=== PATIENT | female | born 1945 | race Caucasian/White ===

== ENCOUNTER 2024-04-20 13:12 | Emergency (ER) | payer MEDICARE, OTHER, SELFPAY ==
--- NOTE | ~2024-04-20 | CT_ITS ---
EXAMINATION: CT abdomen pelvis w con DATE: 04/20/2024 14:41 INDICATION: left lower abd pain TECHNIQUE: Computed tomography (CT) of the abdomen and pelvis was performed with 100 mL Omnipaque-350 intravenous contrast. Automated exposure control and iterative reconstruction technique were employe d. The dose-length product was 396.91 mGy-cm. COMPARISON: None. FINDINGS: Lower thorax: Ovoid circumscribed 11 mm nodule in the right posterior costophrenic sulcus. Lung bases otherwise clear. Aortic valve and coronary artery calcification. Liver: Normal. Biliary/Gallbladder: Gallbladder is normal. Mild intrahepatic bile duct dilation. The common bile gian t measures 14 mm at the ry hepatis, without detection of an obstructing intraductal mass or stone. Small and uncomplicated appearing duodenal diverticulum near the ampulla. Pancreas: No mass or duct dilation. Spleen: Normal. Adrenals:No mass. Kidneys: Multiple simple bilateral renal cysts. No hydronephrosis. 1 cm indeterminate density left mi dpole exophytic lesion. GI tract: Small hiatal hernia. Mild distal esophageal and gastric wall edema. No small or large bowel dilation. Appendix not visualized. Sigmoid prominent diverticulosis without diverticulitis. Mesentery/Peritoneum: No ascites, mass, or free air. Retroperitoneum: No mass. Atherosclerotic calcifications of intra-abdominal arterial vessels. Pelvis: Pelvic organs are within normal limits. Tubal ligation clips. Soft Tissues: Soft tissues and body wall unremarkable. Bones: No acute osseous finding. IMPRESSION: 11 mm right lower lobe pulmonary nodule. Consider CT at 3 months, PET/CT, or tissue sampling. Mild esophagitis/gastritis. Intra and extrahepatic bile duct dilation, without definite obstructing stone, possibly related to an adjacent, otherwise uncomplicated appearing small duodenal diverticulum. Correlate with biliary labs . 1 cm indeterminate left midpole exophytic lesion. Consider nonemergent, outpatient CT or MR of the [facility] for further characterization. Reviewed, dictated and finalized at location K. IMPRESSION: 11 mm right lower lobe pulmonary nodule. Consider CT at 3 months, PET/CT, or ti ssue sampling. Mild esophagitis/gastritis. Intra and extrahepatic bile duct dilation, without definite obstructing stone, possibly related to an adjacent, otherwise uncomplicated appearing small duoden al diverticulum. Correlate with biliary labs. 1 cm indeterminate left midpole exophytic lesion. Consider nonemergent, outpati ent CT or MR of the kidneys for further characterization.
--- NOTE | ~2024-04-20 | US_ITS ---
EXAMINATION: US abdomen limited DATE: 04/20/2024 15:42 INDICATION: cbd dilated TECHNIQUE: Multiple grayscale and Doppler ultrasound images of limited portions of the abdomen were o btained. COMPARISON: CT abdomen pelvis 04/20/2024. FINDINGS: The visualized portions of the pancreas are normal. The liver is normal with normal echogen icity and echotexture. No surface nodularity. Normal hepatopetal flow in the main portal vein. The ga llbladder is normal with no abnormal wall thickening, pericholecystic fluid or stones, small amount o f gallbladder sludge. The common bile duct measures 12 mm. There was no sonographic [place] sign. IMPRESSION: Intra and extrahepatic bile duct dilation, no obstructing stone detected. Biliary sludge. Otherwise n ormal limited abdominal ultrasound findings. Reviewed, dictated and finalized at location K. IMPRESSION: Intra and extrahepatic bile duct dilation, no obstructing stone detected. Bilia ry sludge. Otherwise normal limited abdominal ultrasound findings.
--- OUTSIDE RECORDS SUMMARY | 2024-04-20 13:14 | XMS_ITS | Clinical Summary ---
Author Organization [facility] Facility Address [address] [place] [address] Care Team Providers Care Lead C Developer Name Role Phone Yee Gannon APN Primary Care Provide r Allergies No known active allergies Medications albuterol HFA (PROVENTIL HFA;VENTOLIN HFA) 108 (90 Base) MCG/ACT inhaler albuterol sulfate HFA 90 mcg/actuation aerosol inhaler INHALE 2 PUFFS INTO THE LUNGS BY MOUTH EVERY 4 HOURS NEEDED 9 Active aspirin ([place]) 81 MG EC tablet Take 81 mg by mouth in the morning. Active atorvastatin (LIPITOR) 40 MG tablet Take 40 mg by mouth in the morning. 9 Active buPROPion XL (WELLBUTRIN XL) 150 MG 24 hr tablet Take 150 mg by mouth in the morning. 3 Active Cholecalciferol 50 MCG (2000 UT) capsule Take 2,000 Units by mouth Active citalopram (CeleXA) 10 MG tablet Take 10 mg by mouth in the morning. 4 Active fluticasone (FLONASE) 50 MCG/ACT nasal spray Administer 1 spray into affected nostril(s) in the morning. 3 Active levothyroxine (SYNTHROID, LEVOTHROID) 112 MCG tablet Take 112 mcg by mouth in the morning. 9 Active lisinopril 20 MG tablet Take 20 mg by mouth in the morning. Active loratadine (CLARITIN) 10 MG tablet Take 10 mg by mouth in the morning. 3 Active montelukast (SINGULAIR) 10 MG tablet Take 10 mg by mouth 1 (one) time each day in the evening 3 Active omeprazole (PriLOSEC) [address] capsule Take 40 mg by mouth in the morning. 9 Active pramipexole (MIRAPEX) 1.5 MG tablet Take 1.5 mg by mouth in the morning. 9 Active traZODone (DESYREL) 150 MG tablet Take 150 mg by mouth in the morning. 3 Active Active Problems Problem Noted Date Diagnosed Date Chronic kidney disease stage 3 07/20/2023 Obstructive sleep apnea syndrome 07/21/2021 Gastroesophageal reflux disease 12/03/2017 Chronic obstructive pulmonary disease 08/21/2017 Overview (07/17/2023): Note: PFT 2013- mild COPD without response to bronchodilator Note: PFT 2013-mild COPD without response to bronchodilator Note: PFT 2013- mild COPD without response to bronchodilator Note: PFT 2013-mild COPD without response to bronchodilator Cyst of kidney 10/09/2016 Overview (07/17/2023): Date Onset: 10/09/2016 Essential hypertension 07/24/2016 Hyperlipidemia 07/24/2016 Hypothyroidism 07/24/2016 Type 2 diabetes mellitus without complication Overview (07/17/2023): Date Onset: 06/20/2016 Immunizations Name Administration Dates Next Due Influenza Vaccine, Quadrival ent, Adjuvanted 11/20/2022 Influenza, Quadrivalent, Pre servative Free 11/05/2013 Influenza, Quadrivalent, Wit h Preservative 10/13/2012 Influenza, Unspecified 11/24/2021,2020,12/03/2017,12/09,12/09/2016,12/14/2015,10/25/2012 Pneumococcal Polysaccharide 12/03/2017,1 02/25/2016,12/14/2015,02/03 Pneumococcal, Unspecified 05/28/2023 Shingrix 04/09/2023 Zoster 12/14/2015 Family History Medical History Relation Comments Diabetes Brother Hypertension Brother Gout Father Hypertension Father Dementia Mother Diabetes Mother Hypertension Mother Cancer Mother's Brother Relation Status Comments Brother Father Mother Mother's Brother Social History Tobacco Use Types Packs/Day Years Used Date Smoking Tobacco: Never Smokeless Tobacco: Never Tobacco Cessation:Counseling Given: Not Answered Alcohol Use Standard Drinks/Week Comments Not Currently 0 (1 standard drink = 0.6 oz pur e alcohol) Comments Unknown Sex and Gender Information Value Date Recorded Sex Assigned at Not on file Legal Sex Female 1:30 PM EDT Gender Identity Not on file Sexual Orientation Not on file Last Filed Vital Signs Vital Sign Reading Time Taken Comments Blood Pressure 152/70 11/19/2023 2:33 PM CDT Pulse 71 11/19/2023 2:33 PM CDT Temperature 36.7 C (98.1 F) 11/19/2023 2:33 PM CDT Respiratory Rate 17 11/19/2023 2:33 PM CDT Oxygen Saturation 92% 11/19/2023 2:33 PM CDT Inhaled Oxygen Concentration - - Weight 64.9 kg (143 lb) 11/19/2023 2:33 PM CDT Height 147.3 cm (4' 10) 11/19/2023 2:33 PM CDT Body Mass Index 29.89 11/19/2023 2:33 PM CDT Plan of Treatment Health Maintenance Due Date Last Done Comments Diabetes: Pedal Pulse Checked 06/26/2023 Diabetes: Sensory Foot Exam 06/26/2023 Diabetes: Visual Foot Exam 06/26/2023 Pneumococcal Vaccine: 65+ Years (3 of 3 - PCV) 05/27/2024 05/28/2023, 12/03/2017, 12/25/2016, Additional history exists Diabetes: Hemoglobin A1C 06/22/2024 025, 10/08/2023, 03/15/2023, Additional history exists Diabetes: Ophthalmology Exam 01/03/2025 01/04/2024 Influenza Vaccine Completed 10/18/2023, , 11/24/2021, Additional history exists Hepatitis B Vaccine Aged Out No longe r eligible based on patient's age to complete this topic Procedures Procedure Name Priority Date/Time Associated Diagnosis Comments EXT RESULT ENTRY Routine 03/15/2023 from Last 3 Months or Most Recently Relevant to Health Maintenance Results * (ABNORMAL) EXT RESULT ENTRY (03/15/2023) WBC 5.98 3.3 - 10.0 10*3/ML Red Blood Cell Count 4.21 Hemoglobin 12.3 12.0 - 16.0 Hematocrit 40.2 36.0 - 46.0 Platelets 280 150 - 399 10*3/UL MCV 95.5 82.0 - 108.0 Sodium 143 137 - 147 Potassium 4.8 3.4 - 5.5 Chloride 106.0 99.0 - 108.0 Carbon Dioxide 29 mmol/L Anion Gap 13 <=30 MMOL/L Glucose 97 60 - 200 BUN 24(A) 4 - 21 mg/dL Creatinine 1.26(A) 0.50 - 1.10 mg/dL Total Protein 7.2 6.4 - 8.2 G/DL BUN/Creatinine Ratio 19 Albumin 3.9 3.5 - 5.0 g/dL Calcium 9.6 8.7 - 10.7 mg/dL eGFR Non-Afr Swazi 41 (TSH) Thyroid Stimulating Hormone 0.94 Hemoglobin A1C 5.4 4.0 - 6.0 Triglycerides 82 Cholesterol, Total 169 HDL 54 mg/dL LDL-Calculated 99 Chol/HDL Ratio (External Entry) 3.1 Non HDL Cholesterol 115 03/15/2023 Historical Provider LAB BLOOD ORDERABLES Ariella l Result from Last 3 Months or Most Recently Relevant to Health Maintenance Insurance [facility] MEDICARE Advance Directives Documents on File Type Date Recorded Patient Grommet Man Expl anation Advance Care Planning 09/10/2023 3:37 PM Care Teams Lead C Developer Relationship Specialty Start Date End Date Yee Gannon APN [phone] [place] [address] PCP - General Nurse Practitioner 06/22/23
--- OUTSIDE RECORDS SUMMARY | 2024-04-20 13:14 | XMS_ITS | Encounter Summary ---
Author Organization [facility] Address [address] [place] [address] Care Team Providers Care International Trade Analyst Name Role Phone Angelica Jacinto SHOE TREER Primary Care Provider Unav ailable Jayleen Swan MD Primary Care Provider + Conchis Parsons MD Unavailable [phone] Kevin Fonseca MD Unavailable Encounter Details Date Type Department Care Team (Late st Contact Info) Description 08/04/2020 Hospital Follow-up Call [facility] [address] [place], [place] [phone] Helen Fuentes, RN Social History Tobacco Use Types Packs/Day Years Used Date Smoking Tobacco: Never Smokeless Tobacco: Never 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 Alcohol Use Standard Drinks/Week Comments No 0 (1 standard drink = 0.6 oz pur e alcohol) AUDIT-C Answer Date Recorded Frequency of Alcohol Consumption Never 12/24/2017 Average Number of Drinks Not on file Frequency of Binge Drinking Not on file 12/13 PHQ-2 Answer Date Recorded PHQ-2 Score - If the patient scores above 3, please move on to questions 3-9 2 08/02/2020 Comments No Sex and Gender Information Value Date Recorded Sex Assigned at Not on file Legal Sex Female 7:58 AM CDT Gender Identity Female 03/07/2021 3:32 PM SOFA BACK UPHOLSTERER Sexual Orientation Straight 03/07/2021 3: 32 PM SOFA BACK UPHOLSTERER COVID-19 Exposure Response Date Recorded In the last month, have you been in contact with someone who was confirmed or suspected to have Coronavirus / COVID-19? No / Unsure 08/04/2020 1:20 PM CDT documented as of this encounter Functional Status * RETIRED Are you deaf or do you have serious difficulty hearing Answer Date of Assessment Author Status No 07/31/2020 3:30 AM CDT Activ e * RETIRED Are you blind or do you have serious difficulty seeing, even when wearing glasses? Answer Date of Assessment Author Status No 07/31/2020 3:30 AM CDT Activ e * Do you have serious difficulty walking or climbing stairs? Answer Date of Assessment Author Status No 07/31/2020 3:30 AM CDT Trent Thurman RN Active * Do you have difficulty dressing or bathing? Answer Date of Assessment Author Status No 07/31/2020 3:30 AM CDT Trent Thurman RN Active * Because of a physical, mental, or emotional condition, do you have difficulty doing errands alone such as visiting a doctor's office or shopping? Answer Date of Assessment Author Status No 07/31/2020 3:30 AM CDT Trent Thurman RN Active documented as of this encounter Mental Status * Because of a physical, mental, or emotional condition, do you have serious difficulty concentrating, remembering, or making decisions? Answer Entry Date Author Status No 07/31/2020 3:30 AM CDT Trent Thurman RN Active documented in this encounter Plan of Treatment Upcoming Encounters Date Type Department Care Team (Late st Contact Info) Description 04/23/2024 10:40 AM CDT Office Visit [facility] Medical [facility] Multispecialty Care - [facility] [address] [facility], [address] [place] [address] Jayleen Swan MD [address] [place] [id number] Roque Guy PA-C [address] [facility] [address] [place] [address] 09/29/2024 9:50 AM CDT Allied Health/Nurse Visit [address] [place] [address] Jayleen Swan MD [address] [facility] [address] [place] [address] [id number] 10/06/2024 8:50 AM CDT Office Visit [address] [address] Jayleen Swan MD [address] [place] [address] 04/07/2025 10:30 AM SOFA BACK UPHOLSTERER Office Visit [address] [address] Jayleen Swan MD [address] [facility] [address] [place] [address] [phone] documented as of this encounter Visit Diagnoses Not on filedocumented in this encounter Additional Health Concerns Infection Onset Date Last Indicated Resolved Time COVID-19 Rule Out 08/10/2020 08/10/2020 01/03/2021 7:05 PM SOFA BACK UPHOLSTERER COVID-19 Rule Out 03/28/2021 03/28/2021 03/28/2021 9:19 AM SOFA BACK UPHOLSTERER COVID-19 Rule Out 03/28/2021 03/28/2021 03/28/2021 8:36 PM SOFA BACK UPHOLSTERER Assessment Noted Time PHQ-9 Depression Total Score: 2 08/03/19 21 4:02 PM CDT documented as of this encounter Care Teams International Trade Analyst Relationship Specialty Start Date End Date Angelica Jacinto FNP PCP - General FAMILY PRACTICE 11/21/17 03/01/22 Jayleen Swan MD [address] [place] [address] PCP - General FAMILY PRACTICE 12/19/23 [place] [address] [place] [address] Consulting Physician PULMONARY DISEASE 04/01/24 5 Kevin Fonseca MD [address] [id number] Consulting Physician GASTROENTEROLOGY 04/01/24 04/01/[address] [address] 03/09/24 documented as of this encounter
--- OUTSIDE RECORDS SUMMARY | 2024-04-20 13:15 | XMS_ITS | Encounter Summary ---
Author Organization [facility] Address [address] [place] [address] Phone Care Team Providers Care Research Affiliate Name Role Phone Yee Gannon APRN, CNP Primary Care P rovider Reason for Visit * Reason Comments Medication Refill Encounter Details Date Type Department Care Team (Late st Contact Info) Description 06/12/2023 Refill [facility] - Primary Care - [place] [address] [place] [address] Yee Gannon APRN, CNP [address] [place] [address] Medication Refill Social History Tobacco Use Types Packs/Day Years Used Date Smoking Tobacco: Never Smokeless Tobacco: Never Alcohol Use Standard Drinks/Week Comments Not Currently 0 (1 standard drink = 0.6 oz pur e alcohol) [facility] Utilities Answer Date Recorded In the past 12 months has [employer] electric, gas, oil, or water company threatened to shut off services in your home? No 04/08/2023 Social Connection and Isolat ion Panel [NHANES] Answer Date Recorded In a typical week, how many times do you talk on the phone with family, friends, or neighbors? More than three times a week 04/08/2023 How often do you get togethe r with friends or relatives? Once a week 04/08/2023 How often do you attend chur ch or druze services? More than 4 times per year 04/08/2023 Do you belong to any clubs o r organizations such as zoroastrianism groups, unions, fraternal or athletic groups, or school groups? No 04/08/2023 How often do you attend meet ings of the clubs or organizations you belong to? Never 04/08/2023 Are you , , di vorced, , never , or living with a partner? 04/08/2023 AUDIT-C Answer Date Recorded Q1: How often do you have a drink containing alc ohol? Monthly or less 04/08/2023 Q2: How many drinks containi ng alcohol do you have on a typical day when you are drinking? 1 or 2 04/08/2023 Q3: How often do you have si x or more drinks on one occasion? Never 04/08/2023 Overall Financial Resource Strain (CARDIA) Answe r Date Recorded How hard is it for you to pa y for the very basics like food, housing, medical care, and heating? Not very hard 04/08/2023 [facility] - Occupational Stress Questionnaire Answer Date Recorded Do you feel stress - tense, restless, nervous, or anxious, or unable to sleep at night because your mind is troubled all the time - these days? Rather much 04/08/2023 Exercise Vital Sign Answer Date Recorde d On average, how many days pe r week do you engage in moderate to strenuous exercise (like a brisk walk)? 2 days 04/08/2023 On average, how many minutes do you engage in exercise at this level? 10 min 04/08/2023 Hunger Vital Sign Answer Date Recorded Within the past 12 months, y ou worried that your food would run out before you got the money to buy more. Never true 04/08/19 24 Within the past 12 months, t he food you bought just didn't last and you didn't have money to get more. Never true 04/08/2023 PRAPARE - Transportation Answer Date Re corded In the past 12 months, has l ack of transportation kept you from medical appointments or from getting medications? No 03/16 In the past 12 months, has l ack of transportation kept you from meetings, work, or from getting things needed for daily living? No 04/08/2023 Housing Stability Vital Sign Answer Manolo e Recorded In the last 12 months, was t here a time when you were not able to pay the mortgage or rent on time? No 04/08/2023 In the last 12 months, how many places have you lived? 2 04/08/2023 In the last 12 months, was t here a time when you did not have a steady place to sleep or slept in a care home (including now)? No 04/08/2023 Education Answer Date Recorded What is the highest level of school you have completed or the highest degree you have received? 12th grade 04/29/2022 Sexually Active Control Partners Comments Not Currently Comments No Sex and Gender Information Value Date Recorded Sex Assigned at Not on file Legal Sex Female 9:02 AM HEART NURSE Gender Identity Female 11/28/2022 6:48 PM CDT Sexual Orientation Straight 11/28/2022 6: 48 PM CDT documented as of this encounter Plan of Treatment Not on file documented as of this encounter Visit Diagnoses Diagnosis Essential hypertension Unspecified essential hypertension Hypothyroidism, unspecified type documented in this encounter Care Teams Research Affiliate Relationship Specialty Start Date End Date Yee Gannno, FOOD QUALITY TECHNICIAN, PAINTER SUPERVISOR [address] [place] [address] PCP - General Advanced Practice Nurse 04/13/2201/28 documented as of this encounter
--- OUTSIDE RECORDS SUMMARY | 2024-04-20 13:15 | XMS_ITS | Clinical Summary ---
Author Organization [facility] Address [address] [place] [id number] Care Team Providers Care Cathode Washer Name Role Phone Jayleen Swan MD Primary Care Provider + Allergies No known active allergies Medications aspirin EC (ASPIRIN EC) 81 MG tablet Take 1 tablet (81 mg total) by mouth daily. Active Cholecalciferol (VITAMIN D3) 2000 units Cap Take 1 capsule by mouth daily. Active albuterol sulfate HFA (VENTOLIN HFA) 108 (90 Base) MCG/ACT inhalerIndications :Cough,SOB (shortness of breath) Inhale 2 puffs every 4-6 hours as needed for cough and SOB 18 g 03/29/19 19 Active Blood Glucose Monitoring Suppl (D-CARE GLUCOMETER) w/Device KitIndications:Typ e 2 diabetes mellitus without complication, without long-term current use of insulin ([facility]) 1 Device by Does not apply route daily as needed. 1 kit 04/28/19 20 Active Glucose Blood (COOL BLOOD GLUCOSE TEST STRIPS) test stripIndications:T ype 2 diabetes mellitus without complication, without long-term current use of insulin ([facility]) 1 strip by Other route as needed. Use as instructed 200 strip 2 04/28/19 20 Active CPAP DEVICE [place], DME,Indications:OS A (obstructive sleep apnea) Present CPAP pressure.16. New CPAP. Pressure.14. Obstructive sleep apnea G47.33 1 Device 03/02/19 22 Active atorvastatin 40 MG tabletIndications: Mixed hyperlipidemia Take 1 tablet (40 mg total) by mouth in the morning. 90 tablet 1 07/05/19 22 Active montelukast 10 MG tabletIndications: Allergic rhinitis, unspecified seasonality, unspecified trigger Take 1 tablet (10 mg total) by mouth every evening. 90 tablet 1 07/05/19 22 Active levothyroxine 112 MCG tabletIndications: Acquired hypothyroidism Take 1 tablet (112 mcg total) by mouth in the morning. 90 tablet 1 07/05/19 22 Active Ferrous Sulfate (RA IRON) 27 MG Tab Take 27 mg by mouth daily. Active omeprazole (PRILOSEC) 20 MG capsuleIndications :Gastroesophageal reflux disease, unspecified whether esophagitis present Take 1 capsule (20 mg total) by mouth daily. 90 capsule 3 12/19/19 24 025 Active pramipexole (MIRAPEX) 1.5 MG tabletIndications: RLS (restless legs syndrome) Take 1 tablet (1.5 mg total) by mouth 2 (two) times daily. 180 tablet 1 02/25/19 25 Active budesonide-formote rol (SYMBICORT) 160-4.5 MCG/ACT inhalerIndications :COPD exacerbation (CMS/HCC HHS/HCC) Inhale 2 puffs into the lungs 2 (two) times daily. 10.2 g 1 04/01/19 25 Active valsartan (DIOVAN) 160 MG tabletIndications: Essential hypertension Take 1 tablet (160 mg total) by mouth daily. 90 tablet 3 04/01/19 25 026 Active citalopram (CELEXA) 10 MG tabletIndications: Depression, major, recurrent, in remission Take 1 tablet (10 mg total) by mouth daily. 90 tablet 3 04/01/19 25 026 Active budesonide-formote rol (SYMBICORT) 160-4.5 MCG/ACT inhalerIndications :COPD exacerbation (CMS/HCC HHS/HCC) Inhale 2 puffs into the lungs 2 (two) times daily. 10.2 g 1 04/04/19 22 025 Discontin ued(Reord er) diphenhydrAMINE-AP AP (TYLENOL PM) 25-500 MG Tab tablet Take 1 tablet by mouth nightly at bedtime. 025 Discontin ued(Thera py completed ) lisinopril (PRINIVIL) 30 MG tabletIndications: Essential hypertension Take 1 tablet (30 mg total) by mouth daily. 90 tablet 3 12/27/19 24 025 Discontin ued(Side effects) Active Problems Problem Noted Date Diagnosed Date Optic neuropathy, right 10/04/2023 Overview (12/19/2023): Goes to [place]. Needed an MRI. Has an appt scheduled later this month. Stage 3 chronic kidney disease 07/20/2023 Overview (04/01/2024): In 07/2022 GFR was 56. Down to 30s in 2023. Scheduled with Dr. Hassan later this month. Assessment & Plan (04/01/2024 3:37 PM FAMILY LAW LEGAL ASSISTANT): GFR is stable. Will wait for nephrology recommendations. Assessment & Plan (01/28/2024 12:06 PM FAMILY LAW LEGAL ASSISTANT): Referral to local nephrology entered. Encouraged her to keep her appointment as scheduled for now. Assessment & Plan (12/19/2023 11:08 AM FAMILY LAW LEGAL ASSISTANT): Chronic. Recent loss of kidney function with GFR now down to 30s beginning in 2023. She is working with nephrology. There appears to be confusion about her lisinopril dose. We are communicating with the office to determine which dose they recommended. Spinal stenosis of lumbar re gion with neurogenic claudication 05/15/2023 Overview (12/19/2023): Chronic back pain. Worse in the morning until she gets moving. Just managing without OTC. History of colon polyps 03/08/2021 Overview (03/08/2021): Added automatically from request for surgery [id number] Allergic rhinitis, unspecifi ed seasonality, unspecified trigger 01/04/2021 Overview (12/19/2023): Takes singulair. Not a lot of relief. GERD (gastroesophageal reflux disease) 8 Overview (04/01/2024): Takes omeprazole 20 mg daily. Patient notes that she is having some difficulty with swallowing but the consistency of the food does not matter. She can get significant hiccups depending what she eats. She has not had a scope. Assessment & Plan (04/01/2024 3:41 PM FAMILY LAW LEGAL ASSISTANT): Not currently controlled despite PPI. Will request GI evaluate her to determine whether she should have an EGD. Assessment & Plan (12/19/2023 11:09 AM FAMILY LAW LEGAL ASSISTANT): Chronic. Controlled. Will trial omeprazole 20 mg daily to see if we can reduce her PPI use due to long-term risks. COPD (chronic obstructive pu lmonary disease) ([facility]) 08/21/2017 Overview (12/27/2023): PFT 2013-mild COPD without response to bronchodilator. Has prescriptions for symbicort and albuterol. Cough is now improved since starting her inhaler at nighttime. Assessment & Plan (04/01/2024 3:37 PM FAMILY LAW LEGAL ASSISTANT): Currently managed with albuterol alone. She will initiate Symbicort at the onset of any illness in the future. Assessment & Plan (12/27/2023 10:30 AM FAMILY LAW LEGAL ASSISTANT): Improved control with better compliance with her albuterol inhaler. Assessment & Plan (12/19/2023 11:08 AM FAMILY LAW LEGAL ASSISTANT): Chronic. Possibly not controlled due to cough at night. Recommended she use her albuterol inhaler in the evening to see if this improves her breathing and cough. Insomnia 08/21/2017 Overview (04/01/2024): She is back on citalopram which helped manage her depression. Trazodone did not seem to be effective. Mirtazapine caused increase in appetite. She discontinued both and his limited her Tylenol PM dosing to about once a week. Melatonin has helped more with sleep this time than in the past. Assessment & Plan (04/01/2024 3:40 PM FAMILY LAW LEGAL ASSISTANT): Chronic. Reasonably controlled with melatonin. Assessment & Plan (01/28/2024 12:06 PM FAMILY LAW LEGAL ASSISTANT): Discussed limited options in the future due to side effect profiles of medications. Recommend continuing with limited Tylenol PM. Patient is willing to allow for a month of adjustment and then trial melatonin again. Assessment & Plan (12/27/2023 10:29 AM FAMILY LAW LEGAL ASSISTANT): Discontinue trazodone and Tylenol PM in favor of mirtazapine. Discontinue citalopram as well since mirtazapine should help in this regard as well. Assessment & Plan (12/19/2023 11:09 AM FAMILY LAW LEGAL ASSISTANT): Not controlled. Discussed that we may consider replacing trazodone and citalopram with mirtazapine which may help with sleep and avoid antihistamines as she has been taking. Renal cyst 10/09/2016 Overview (12/24/2017): Date Onset: 10/09/2016 Mixed hyperlipidemia 07/24/2016 Overview (12/19/2023): Patient takes atorvastatin 40 mg daily. Assessment & Plan (04/01/2024 3:39 PM FAMILY LAW LEGAL ASSISTANT): CMP and lipid panel at goal. Continue atorvastatin 40 mg daily. Assessment & Plan (01/28/2024 12:08 PM FAMILY LAW LEGAL ASSISTANT): Repeat lipid panel in May along with CMP. Continue atorvastatin. Assessment & Plan (12/19/2023 11:07 AM FAMILY LAW LEGAL ASSISTANT): Chronic and controlled. CMP and lipid panel from September reviewed. Essential hypertension 07/24/2016 Overview (01/28/2024): When she saw nephrology on 11/19/2023 she had been off her amlodipine and lisinopril due to concerns about hypotension. She is now on lisinopril 30 mg daily. Reports home readings as low as 122/70 and typically between 130 and 140 systolic. Tolerating medication well. Her new cuff seems to be working well. Assessment & Plan (04/01/2024 3:39 PM FAMILY LAW LEGAL ASSISTANT): Chronic and controlled. Unfortunately has side effects from lisinopril. Will switch to equivalent dose of valsartan 160 mg daily. Request she monitor her blood pressures at home. Assessment & Plan (01/28/2024 12:07 PM FAMILY LAW LEGAL ASSISTANT): Chronic and now controlled. Continue lisinopril 30 mg daily. She will continue to monitor her home readings. Assessment & Plan (12/27/2023 10:28 AM FAMILY LAW LEGAL ASSISTANT): Controlled. Blood pressure seems adequate range with 30 mg daily. Will continue this and she will follow-up with nephrology as previously scheduled. Assessment & Plan (12/19/2023 11:07 AM FAMILY LAW LEGAL ASSISTANT): Chronic and controlled today. Concerned about her high dose of lisinopril and suspect there was miscommunication about which dose she should be taking. We will reach out to Dr. Ansari's office to confirm which dose she should take. In the meantime I recommended that she take lisinopril 30 mg daily and we will check a BMP to ensure kidney function and potassium levels are acceptable. Acquired hypothyroidism 07/24/2016 Overview (12/19/2023): Takes levothyroxine with other medications. TSH stable normal in 09/2023. Assessment & Plan (04/01/2024 3:39 PM FAMILY LAW LEGAL ASSISTANT): TSH controlled. Continue levothyroxine. Assessment & Plan (12/19/2023 11:09 AM FAMILY LAW LEGAL ASSISTANT): TSH reviewed. Chronic and controlled. Continue levothyroxine. In the future may consider changing recommendation for how she is taking prescription but there appears to be confusion about medication and do not wish to exacerbate this. YAZAN (obstructive sleep apnea) 07/24/2016 Overview (12/19/2023): Has inspire. Type 2 diabetes mellitus wit h diabetic nephropathy, without long-term current use of insulin ([facility]) 06/20/2016 Overview (04/01/2024): Date Onset: 06/20/2016. A1c 6 %. Metformin discontinued after kidney disease. Managing with diet alone. [facility]ina lennon in [place]. Assessment & Plan (04/01/2024 3:38 PM FAMILY LAW LEGAL ASSISTANT): Chronic. Controlled without medication. Discussed dietary changes specifically increasing high-fiber foods and reducing saturated fats and simple sugars. Will request diabetic eye exam from Martina lennon. RLS (restless legs syndrome) 06/20/2016 Overview (12/19/2023): Date Onset: 06/20/2016. Takes pramipexole which works well. Assessment & Plan (12/19/2023 11:09 AM FAMILY LAW LEGAL ASSISTANT): Controlled. Continue pramipexole. Chronic. Encounters Date Type Department Care Team Description 04/02/[address] [place] [phone] Jayleen Swan MD Record Request 04/01/2024 2:00 PM FAMILY LAW LEGAL ASSISTANT Office Visit [address] [place] [address] Jayleen Swan MD Follow Up (2 mo ck on DM. ) 04/01/2024 1:00 PM FAMILY LAW LEGAL ASSISTANT Office Visit [address] [place] [address] Jayleen Swan MD Medicare Wellness (Patient presents today for her Medicare Annual Wellness Visit) 04/01/[address] [place] [address] Jayleen Swan MD Health Maintenance Follow Up (Request for DM eye exam) 04/01/2024 Travel 03/25/2024 7:40 AM FAMILY LAW LEGAL ASSISTANT Laboratory Only [address] [place] [address] Jayleen Swan MD 03/25/2024 Travel 02/26/2024 Telephone [place] [phone] [facility] [address] [place] [address] Jayleen Swan MD Refill Request 01/28/2024 9:30 AM FAMILY LAW LEGAL ASSISTANT Office Visit [place] [phone] [facility] [address] [place] [address] Jayleen Swan MD Follow Up (Here for re ck on insomnia she isn't sleeping at night. ) 01/28/2024 Travel from Last 3 Months Immunizations Name Administration Dates Next Due Arexvy Respiratory Syncytial Virus (RSV, adjuvanted) 0.5 mL, PF 02/14/2024 FLUAD (IIV, Trivalent, 0.5 M L Pre-filled Syringe) 10/18/2023 Fluad influenza vaccine, Sha drivalent (aIIV4), Inactivated, adjuvanted, preservative free, 0.5 mL,IM use 11/20/2022 Fluzone High Dose - >Age 65 (Prefilled Syringe) 01/04/2021,12/09/2016 Influenza (Generic) 11/24/2021, 8,12/09/2016,2015,10/25/2012 Influenza Adult (Generic) 12/03/2017,,11/05/2013,2012 Pneumococcal (Pneumovax 23) 12/03/2017,1 02/25/2016,12/14/2015,2013 Pneumococcal (Prevnar 20) 05/28/2023 Pneumococcal(Ppv 23)Aka Pneumovax 12/03/2017 Shingrix 07/06/2023,04/09/2023 Zoster (Zostavax) 82202 Unt/0.65Ml 12/14/2015 Family History Medical History Relation Comments Diabetes Father Hypertension Father Dementia Mother Relation Status Comments Brother Father Mother Social History Tobacco Use Types Packs/Day Years Used Date Smoking Tobacco: Never Passive Smoke Exposure: Past Smokeless Tobacco: Never Tobacco Cessation:Counseling Given: No Alcohol Use Standard Drinks/Week Comments Not Currently 0 (1 standard drink = 0.6 oz pur e alcohol) AUDIT-C Answer Date Recorded Q1: How often do you have a drink containing alcohol? Never 03/30/2024 Q2: How many drinks containi ng alcohol do you have on a typical day when you are drinking? Patient does not drink Q3: How often do you have si x or more drinks on one occasion? Never 03/30/2024 PHQ-2 Answer Date Recorded Patient Health Questionnaire-2 Score 1 03/30/2024 Comments No Sex and Gender Information Value Date Recorded Sex Assigned at Not on file Legal Sex Female 7:58 AM CDT Gender Identity Female 03/07/2021 3:32 PM FAMILY LAW LEGAL ASSISTANT Sexual Orientation Straight 03/07/2021 3: 32 PM FAMILY LAW LEGAL ASSISTANT Last Filed Vital Signs Vital Sign Reading Time Taken Comments Blood Pressure 128/68 04/01/2024 1:53 PM FAMILY LAW LEGAL ASSISTANT Pulse 72 04/01/2024 1:53 PM FAMILY LAW LEGAL ASSISTANT Temperature 36.3 C (97.4 F) 04/01/2024 1:53 PM FAMILY LAW LEGAL ASSISTANT Respiratory Rate 16 04/01/2024 1:08 PM FAMILY LAW LEGAL ASSISTANT Oxygen Saturation 96% 04/01/2024 1:53 PM FAMILY LAW LEGAL ASSISTANT Inhaled Oxygen Concentration - - Weight 67.7 kg (149 lb 4.8 oz) 04/01/2024 1:53 P M FAMILY LAW LEGAL ASSISTANT Height 147.3 cm (4' 10) 04/01/2024 1:53 PM FAMILY LAW LEGAL ASSISTANT Body Mass Index 31.2 04/01/2024 1:53 PM FAMILY LAW LEGAL ASSISTANT Plan of Treatment Upcoming Encounters Date Type Department Care Team (Late st Contact Info) Description 04/23/2024 10:40 AM CDT Office Visit [facility] - [address], [address] [place] [id number] Jayleen Swan MD [address] [place] [address] Roque Guy PA-C [address] [facility] [address] [place] [id number] 09/29/2024 9:50 AM CDT Allied Health/Nurse Visit [address] [address] Jayleen Swan MD [address] [place] [address] [address] [place] [phone] 10/06/2024 8:50 AM CDT Office Visit [address] [address] Jayleen Swan MD [address] [place] [phone] 04/07/2025 10:30 AM FAMILY LAW LEGAL ASSISTANT Office Visit [address] [address] Jayleen Swan MD [address] [place] [phone] Health Maintenance Due Date Last Done Comments DTaP, Tdap and Td Vaccines (1 - Tdap) 08/23/1964 Hemoglobin A1C 09/22/2024 03/25/2024, 09/13, 03/15/2023, Additional history exists Kidney Health Evaluation 03/25/2025 03/25/2024 Lipid Panel 03/25/2025 03/25/2024, 09/13, 12/30/2020, Additional history exists Annual Medicare Wellness Visit 04/02/2025 04/01/2024 Diabetes: Retinopathy Eye Exam 07/02/2025 07/03/2023, 07/03/2023, 06/17/2020, Additional history exists Colorectal Cancer Screening Colonoscopy (10 Years) Discontinued 04/01/2021, 04/01/2021, 05/11/2015 Pneumococcal Vaccine: 65+ Years Completed 05/28/2023, 12/03/2017, 12/03/2017, Additional history exists Dexa Scan (General) Completed 06/25/2023, 06/25/2023, 10/12/2015 Zoster Vaccines Completed 07/06/2023, 03/16, 12/14/2015 Hepatitis C Completed 10/08/2023 Influenza Adult Completed 10/18/2023, 10/2022, 11/24/2021, Additional history exists COVID-19 Vaccine Completed 11/05/2023, 11/20/2022 RSV Immunization or 60+ Years Completed 02/14/2024 PHQ-2 (Physician [place]) Completed 03/30/2024 Meningococcal B Vaccine Aged Out No l onger eligible based on patient's age to complete this topic Meningococcal Vaccine Aged Out No isabel moses eligible based on patient's age to complete this topic RSV Immunizations Under 20 Months Aged Out No longer eligible based on patient's age to complete this topic Procedures Procedure Name Priority Date/Time Associated Diagnosis Comments COLLECTION VENOUS BLOOD VENIPUNCTURE Routine 03/25/2024 7:38 AM FAMILY LAW LEGAL ASSISTANT Type 2 diabetes mellitus with diabetic nephropathy, without long-term current use of insulin ([facility]) Acquired hypothyroidism Mixed hyperlipidemia Essential hypertension HEMOGLOBIN, GLYCOSYLATED Routine 03/25/2024 7:38 AM FAMILY LAW LEGAL ASSISTANT Type 2 diabetes mellitus with diabetic nephropathy, without long-term current use of insulin ([facility]) COMPREHENSIVE METABOLIC PANEL Routine 03/25/2024 7:38 AM FAMILY LAW LEGAL ASSISTANT Essential hypertension LIPID PANEL Routine 03/25/2024 7:38 AM FAMILY LAW LEGAL ASSISTANT Mixed hyperlipidemia THYROID STIM HORMONE TSH Routine 03/25/2024 7:38 AM FAMILY LAW LEGAL ASSISTANT Acquired hypothyroidism ALBUMIN URINE RANDOM W/CREATININE Routine 03/25/2024 7:38 AM FAMILY LAW LEGAL ASSISTANT Type 2 diabetes mellitus with diabetic nephropathy, without long-term current use of insulin ([facility]) DIABETIC RETINOPATHY EXAM (NEGATIVE)(SCAN ORDER) Routine 07/03/2023 COLONOSCOPY GENERIC (SCAN ORDER) Routine 04/01/2021 BONE DENSITY GENERIC (SCAN ORDER) Routine 10/12/2015 from Last 3 Months or Most Recently Relevant to Health Maintenance Results * (ABNORMAL) HEMOGLOBIN, GLYCOSYLATED (03/25/2024 7:38 AM FAMILY LAW LEGAL ASSISTANT) Pathologist [facility] HGB A1C 6.0 4.5 - 6.2 % 03/25/2024 3:56 PM FAMILY LAW LEGAL ASSISTANT [facility] ESTIMATED AVG GLUCOSE 126(H) 74 - 106 MG/DL 03/25/2024 3:56 PM FAMILY LAW LEGAL ASSISTANT [facility] 03/25/2024 7:38 AM FAMILY LAW LEGAL ASSISTANT Jayleen Swan MD LABORATORY Final Re sult Performing Organization Address [facility] Co de Phone Number [facility] [address] [place] [address], [place] [phone] * ALBUMIN URINE RANDOM W/CREATININE (03/25/2024 7:38 AM FAMILY LAW LEGAL ASSISTANT) [facility] MICROALBUMIN (U) 7.1 <20 MG/L 03/25/19 25 4:01 PM FAMILY LAW LEGAL ASSISTANT [facility] CREATININE RANDOM (U) 89.6 MG/DL 03/25/2024 4:01 PM FAMILY LAW LEGAL ASSISTANT [facility] ALBUMIN/CREAT RATIO 7.9 <30 MG/G 03/25/2024 4:01 PM FAMILY LAW LEGAL ASSISTANT [facility] URINE SPECIMEN / Unknown 03/25/2024 7:38 AM FAMILY LAW LEGAL ASSISTANT us Jayleen Swan MD URINE ORDERABLES Final R esult Performing Organization Address [facility]/ZIP Co de Phone Number [facility] [address] [place] [address], [place] [phone] * (ABNORMAL) COMPREHENSIVE METABOLIC PANEL (03/25/2024 7:38 AM FAMILY LAW LEGAL ASSISTANT) [facility] SODIUM S/P/B 144 136 - 145 MMOL/L 03/25/2024 3:04 PM [facility] POTASSIUM S/P/B 5.0 3.5 - 5.1 MMOL/L 03/25/2024 3:04 PM [facility] CHLORIDE S/P/B 105 98 - 107 MMOL/L 03/25/2024 3:04 PM [facility] CO2 30.9 21 - 32 MMOL/L 03/25/2024 3:28 PM [facility] GLUCOSE 91 70 - 99 MG/DL 03/25/2024 3:04 PM [facility] BUN 34(H) 7 - 18 MG/DL 03/25/2024 3:04 PM [facility] CREATININE S/P/B 1.47(H) 0.55 - 1.02 MG/DL 03/25/2024 3:04 PM [facility] CALCIUM S/P/B 10.0 8.4 - 10.5 MG/DL 03/25/2024 3:04 PM [facility] BILIRUBIN TOTAL S/P/B 0.5 0.2 - 1.0 MG/DL 03/25/2024 3:04 PM [facility] ALKALINE PHOSPHATASE S/P/B 91 55 - 142 U/L 03/25/2024 3:04 PM [facility] AST 15 15 - 37 U/L 03/25/2024 3:04 PM [facility] ALT 21 14 - 59 U/L 03/25/2024 3:04 PM [facility] TOTAL PROTEIN S/P/B 6.7 6.4 - 8.2 G/DL 03/25/2024 3:04 PM [facility] ALBUMIN S/P/B 3.3(L) 3.4 - 5.0 G/DL 03/25/2024 3:04 PM FAMILY LAW LEGAL ASSISTANT [facility] ANION GAP 8.1 5 - 15 MMOL/L 03/25/2024 3:28 PM FAMILY LAW LEGAL ASSISTANT [facility] Comment:REFERENCE RANGE NOT ESTABLISHED OSMOLALITY (CALC) 305 MOSM/KG 025 3:04 PM [facility] Comment:REFERENCE RANGE NOT ESTABLISHED GFR ESTIMATE 37(L) >90 ML/MIN/1. 73 M2 03/25/2024 3:04 PM FAMILY LAW LEGAL ASSISTANT [facility] GFR NOTES GFR REFERENCE S: 03/25/2024 3:04 PM [facility] Comment: THE ESTIMATED GFR IS CALCULATED USING THE 2020 CKD-EPI EQUATION. THE FOLLOWING CATEGORIES FOR GRADING RENAL FUNCTION ARE RECOMMENDED BY THE INTERNATIONAL SOCIETY OF NEPHROLOGY (KDIGO 2012 CLINICAL PRACTICE GUIDELINE). G1,NORMAL OR HIGH: >89 ml/min/1.73 m2 G2,MILDLY DECREASED: 60-89 ml/min/1.73 m2 G3A,MILDLY TO MODERATELY DECREASED: 45-59 ml/min/1.73 m2 G3B,MODERATELY TO SEVERELY DECREASED: 30-44 ml/min/1.73 m2 G4,SEVERELY DECREASED: 15-29 ml/min/1.73 m2 G5,KIDNEY FAILURE: <15 ml/min/1.73 m2 03/25/2024 7:38 AM FAMILY LAW LEGAL ASSISTANT us Jayleen Swan MD LABORATORY Final Re sult [facility] [address] [place] [address], [place] [phone] * LIPID PANEL (03/25/2024 7:38 AM FAMILY LAW LEGAL ASSISTANT) CHOLESTEROL 161 <200 MG/DL 03/25/2024 3:04 PM [facility] TRIGLYCERIDES 72 <150 MG/DL 03/25/2024 3:04 PM FAMILY LAW LEGAL ASSISTANT [facility] HDL 63 >40 MG/DL 03/25/2024 3:04 PM [facility] LDL-C 84 <100 MG/DL 03/25/2024 3:04 PM FAMILY LAW LEGAL ASSISTANT [facility] VLDL CALCULATION 14 5 - 28 MG/DL 03/25/2024 3:04 PM FAMILY LAW LEGAL ASSISTANT [facility] CHOL/HDL RATIO 2.6 0.0 - 4.0 03/25/2024 3:04 PM FAMILY LAW LEGAL ASSISTANT [facility] LDL/HDL 1.3 0.41 - 2.13 03/25/2024 3:04 PM FAMILY LAW LEGAL ASSISTANT [facility] NON HDL CHOLESTEROL 98 <140 MG/DL 03/25/2024 3:04 PM FAMILY LAW LEGAL ASSISTANT [facility] 03/25/2024 7:38 AM FAMILY LAW LEGAL ASSISTANT Jayleen Swan MD LABORATORY Final Re sult Performing Organization Address City/[facility]/ZIP Co de Phone Number [facility] [address] [place] [address], [place] [phone] * THYROID STIM HORMONE TSH (03/25/2024 7:38 AM FAMILY LAW LEGAL ASSISTANT) TSH 1.194 0.358 - 3.740 uIU/ML 03/25/2024 3:04 PM FAMILY LAW LEGAL ASSISTANT [facility] 03/25/2024 7:38 AM FAMILY LAW LEGAL ASSISTANT Jayleen Swan MD LABORATORY Final Re sult Performing Organization Address [facility]/ZIP Co de Phone Number [facility] [address] [place] [address], [place] [phone] * DIABETIC RETINOPATHY EXAM (NEGATIVE) (07/03/2023) [facility] Scanned SCANNING Final Resu lt Performing Organization Address City/[facility]/ZIP Co de Phone Number [facility] * COLONOSCOPY (04/01/2021) us Documents Scanned SCANNING Final Result [facility] * BONE DENSITY (10/12/2015) Anatomical Region Laterality Modality Other us Documents Scanned SCANNING Final Result from Last 3 Months or Most Recently Relevant to Health Maintenance Insurance [employer] MEDICARE Advance Directives * Full Code (Latest Code Status on File) Date Activated Date Inactivated Comments 07/31/2020 2:09 AM 08/01/2020 3:24 PM Care Teams Cathode Washer Relationship Specialty Start Date End Date Jayleen Swan MD [address] [place] [address] PCP - General FAMILY PRACTICE 12/19/23 Martina Lennon [address] [place] [address] [address] 03/09/24
--- OUTSIDE RECORDS SUMMARY | 2024-04-20 13:15 | XMS_ITS | Encounter Summary ---
Author Organization [facility] Address [address] [place] [address] Care Team Providers Care Clinical Athletic Instructor Name Role Phone Jayleen Swan MD Primary Care Provider + Conchis Parsons MD Unavailable [phone] Kevin Fonseca MD Unavailable Encounter Details Date Type Department Care Team (Late st Contact Info) Description 12/27/2023 Clupedia Message Enc [facility] [employer] [address] [facility] [place] [address] [facility], [facility] Provider Proof of Name Change Social History Tobacco Use Types Packs/Day Years Used Date Smoking Tobacco: Never Passive Smoke Exposure: Never Smokeless Tobacco: Never Alcohol Use Standard Drinks/Week Comments Not Currently 0 (1 standard drink = 0.6 oz pur e alcohol) AUDIT-C Answer Date Recorded Frequency of Alcohol Consumption Never 12/24/2017 Average Number of Drinks Not on file 018 Frequency of Binge Drinking Not on file 12/13 PHQ-2 Answer Date Recorded Patient Health Questionnaire-2 Score 1 12/19/2023 Comments No Sex and Gender Information Value Date Recorded Sex Assigned at Not on file Legal Sex Female 7:58 AM CDT Gender Identity Female 03/07/2021 3:32 PM SPARK TESTER Sexual Orientation Straight 03/07/2021 3: 32 PM SPARK TESTER documented as of this encounter Functional Status [...] Author Status No 07/31/2020 3:30 AM CDT Ternt Thurman RN Active documented as of this encounter Mental Status * Because of a physical, mental, or emotional condition, do you have serious difficulty concentrating, remembering, or making decisions? Answer Entry Date Author Status No 07/31/2020 3:30 AM YAHIRT Trent Thurman RN Active documented in this encounter Plan of Treatment Upcoming Encounters Date Type Department Care Team (Late st Contact Info) Description 04/23/2024 10:40 AM CDT Office Visit [facility] - [address], [address] [place] [id number] Jayleen Swan MD [address] [address] Roque Guy PA-C [address] [facility] [address] [place] [address] 09/29/2024 9:50 AM CDT Allied Health/Nurse Visit [facility] [place] [address] [address] Jayleen Swan MD [address] [place] [id number] 10/06/2024 8:50 AM CDT Office Visit [facility] - [address] [place] [address] Jayleen Swan MD [address] [place] [address] [place] [id number] 04/07/2025 10:30 AM SPARK TESTER Office Visit [address] [place] [address] Jayleen Swan MD [address] [facility] [address] [place] [id number] documented as of this encounter Visit Diagnoses Not on filedocumented in this encounter Additional Health Concerns Assessment Noted Time PHQ-9 Depression Total Score: 18 022 10:40 AM CDT documented as of this encounter Care Teams Clinical Athletic Instructor Relationship Specialty Start Date End Date Jayleen Swan MD [address] [facility] [address] [place] [address] PCP - General FAMILY PRACTICE 12/19/23 [place] [address] [place] [address] Consulting Physician PULMONARY DISEASE 04/01/24 Kevin Zuñiga MD 3 [facility] [address] [place] [address] Consulting Physician GASTROENTEROLOGY 04/01/24 04/01/24 Martina Lennon [address] [place] [address] 03/09/24 documented as of this encounter
--- OUTSIDE RECORDS SUMMARY | 2024-04-20 13:15 | XMS_ITS | Encounter Summary ---
Author Organization [facility] Address [address] [place] [address] Phone Care Team Providers Care College Recruiter Name Role Phone Yee Gannon APRN, CNP Primary Care P rovider Reason for Visit * Reason Comments Medication Refill Encounter Details Date Type Department Care Team (Late st Contact Info) Description 05/02/2023 Refill [facility] - Primary Care - [place] [address] [place] [address] Yee Gannon APRN, CNP [address] [place] [address] Medication Refill Social History Tobacco Use Types Packs/Day Years Used Date Smoking Tobacco: Never Smokeless Tobacco: Never Alcohol Use Standard Drinks/Week Comments Not Currently 0 (1 standard drink = 0.6 oz pur e alcohol) [facility] Utilities Answer Date Recorded In the past 12 months has [employer] electric, gas, oil, or water company threatened [...] often do you attend chur ch or adventist services? More than 4 times per year 04/08/2023 Do you belong to any clubs o r organizations such as shinto groups, unions, fraternal or athletic groups, or [...] care, and heating? Not very hard 04/08/2023 [facility] - Occupational [...] place to sleep or slept in a residential (including now)? No 04/08/2023 Education Answer Date Recorded What is the highest level of school you have completed or the highest degree you have received? 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
--- OUTSIDE RECORDS SUMMARY | 2024-04-20 13:15 | XMS_ITS | Encounter Summary ---
Author Organization [facility] Address [address] [facility] [place] [address] Phone Care Team Providers Care Paper Sheeter Name Role Phone Yee Gannon APRN, CNP Primary Care P rovider Reason for Visit * Reason Comments Medication Refill Encounter Details Date Type Department Care Team (Late st Contact Info) Description 02/03/2023 Refill [facility] - Primary Care - [place] [address] [place] [address] Yee Gannon APRN, CNP [address] [place] [address] Medication Refill Social History Tobacco Use Types Packs/Day Years Used Date Smoking Tobacco: Never Smokeless Tobacco: Never Alcohol Use Standard Drinks/Week Comments Not Currently 0 (1 standard drink = 0.6 oz pur e alcohol) Education Answer Date Recorded What is the highest level of school you have completed or the highest degree you have received? 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 S ACCOUNT MANAGER documented in this encounter Plan of Treatment Not on file documented as of this encounter Visit Diagnoses Not on filedocumented in this encounter Care Teams Paper Sheeter Relationship Specialty Start Date End Date Yee Gannon APRN, WARDSPERSON [address] [place] [address] PCP - General Advanced Practice Nurse 04/13/2201/28 documented as of this encounter
--- OUTSIDE RECORDS SUMMARY | 2024-04-20 13:15 | XMS_ITS | Encounter Summary ---
Author Organization [facility] Address [address] 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
--- OUTSIDE RECORDS SUMMARY | 2024-04-20 13:15 | XMS_ITS | Encounter Summary ---
Author Organization [facility] Address [address] [place] [address] Phone Care Team Providers Care Termite Technician Name Role Phone Yee Gannon APRN, CNP Primary Care P rovider Reason for Visit * Reason Comments Medication Refill Encounter Details Date Type Department Care Team (Late st Contact Info) Description 07/14/2023 Refill [facility] - Primary Care - [place] [address] [place] [address] Yee Gannon APRN, CNP [address] [place] [address] Medication Refill Social History Tobacco Use Types Packs/Day Years Used Date Smoking Tobacco: Never Smokeless Tobacco: Never Alcohol Use Standard Drinks/Week Comments Not Currently 0 (1 standard drink = 0.6 oz pur e alcohol) [facility] Utilities Answer Date Recorded In the past 12 months has [employer] electric, gas, oil, or water company threatened [...] often do you attend chur ch or buddhist services? More than 4 times per year 04/08/2023 Do you belong to any clubs o r organizations such as mu-ism groups, unions, fraternal or athletic groups, or [...] care, and heating? Not very hard 04/08/2023 [facility] - Occupational Stress [...] place to sleep or slept in a half-way (including now)? No 04/08/2023 Education Answer Date Recorded What is the highest level of school you have completed or the highest degree you have received? 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 * Telephone Encounter - Bossman Sesay RN - 07/16/2023 8:20 AM CDT Medication failed the protocol, provider to review and approve the medication order if appropriate. Requested Prescriptions Pending Prescriptions Disp Refills traZODone (DESYREL) 150 MG Tablet [Pharmacy Med Name: TRAZODONE HCL TABS 150MG] 90 Tablet 0 Sig: TAKE 1 TABLET NIGHTLY Serotonin Modulators (6 Month Refill Only) Protocol Failed - 07/14/2023 10:36 AM Failed - Has an encounter in the past 6 months with a depression or anxiety visit diagnosis Passed - Visit with relevant provider in past 6 months or upcoming 90 days Recent Visits Date Type Provider Dept 07/12/23 Office Visit Yee Gannon APRN, [facility] 04/09/23 Office Visit Yee Gannon APRN, CNP [facility] Showing recent visits within past 182 days and meeting all other requirements Future Appointments Date Type Provider Dept 10/08/23 Appointment Lab, [facility] Showing future appointments within next 90 days and meeting all other requirements Passed - No PRN Use for Trazodone Passed - Patient has established therapy with Serotonin Modulators for at least 6 months documented in this encounter Plan of Treatment Not on file documented as of this encounter Visit Diagnoses Diagnosis Insomnia, unspecified type documented in this encounter Care Teams Termite Technician Relationship Specialty Start Date End Date Yee Gannon APRN, CNP [address] [place] [address] PCP - General Advanced Practice Nurse 04/13/2201/28 documented as of this encounter
--- OUTSIDE RECORDS SUMMARY | 2024-04-20 13:15 | XMS_ITS | Clinical Summary ---
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 Active albuterol 108 (90 Base) MCG/ACT Aerosol Solution albuterol sulfate HFA 90 mcg/actuation aerosol inhaler INHALE 2 PUFFS INTO THE LUNGS BY MOUTH EVERY 4 HOURS NEEDED 9 Active Cholecalciferol 2000 UNIT Capsule Take 2,000 Units by mouth. Active Blood Glucose Calibration (True Metrix Level 1) Low SolutionIndicati ons:Type 2 diabetes mellitus without complication, without long-term current use of insulin (HCC) Use to perform maintenance on glucometer. 1 Each 3 3 Active fluticasone (FLONASE) 50 MCG/ACT SuspensionIndica tions:Acute maxillary sinusitis, recurrence not specified SPRAY 1-2 SPRAYS IN EACH NOSTRIL EVERY DAY DIRECTED 48 mL 1 3 Active loratadine (CLARITIN) 10 MG TabletIndication s:Allergic rhinitis, unspecified seasonality, unspecified trigger Take 1 Tablet by mouth daily. 90 Tablet 1 3 Active pramipexole (MIRAPEX) 1.5 MG Tablet Take 1 Tablet by mouth daily. 90 Tablet 1 4 Active azelastine (ASTELIN) 0.1 % SolutionIndicati ons:Chronic nasal congestion 2 Sprays by Nasal route 2 times daily. Use in each nostril as directed 30 mL 3 4 Active omeprazole (PriLOSEC) 40 MG CAPSULE DELAYED RELEASE TAKE 1 CAPSULE DAILY 90 Capsule 3 4 Active citalopram (CeleXA) 10 MG TabletIndication s:Stress due to family tension TAKE 1 TABLET DAILY 90 Tablet 1 4 Active lisinopril (PRINIVIL, ZESTRIL) 20 MG Tablet Take 20 mg by mouth as needed. Active buPROPion (WELLBUTRIN) 150 MG XL tablet Take 150 mg by mouth every morning. 3 Active amLODIPine (NORVASC) 5 MG Tablet Take 5 mg by mouth as needed. 9 Active levothyroxine (SYNTHROID) 112 MCG TabletIndication s:Hypothyroidism , unspecified type TAKE 1 TABLET DAILY 90 Tablet 1 4 Active atorvastatin (LIPITOR) 40 MG Tablet TAKE 1 TABLET DAILY 90 Tablet 1 4 Active traZODone (DESYREL) 150 MG TabletIndication s:Insomnia, unspecified type TAKE 1 TABLET NIGHTLY 90 Tablet 3 4 Active montelukast (SINGULAIR) 10 MG Tablet TAKE 1 TABLET DAILY 90 Tablet 4 Active Active Problems Problem Noted Date Diagnosed Date Optic neuropathy, right 10/04/2023 Chronic bronchitis 07/21/2021 Hyperlipidemia 07/21/2021 Hypothyroidism 07/21/2021 Type 2 diabetes mellitus without complication Essential hypertension 07/21/2021 Obstructive sleep apnea syndrome 07/21/2021 Resolved Problems Problem Noted Date Diagnosed Date Resolved Date COPD (chronic obstructive pulmonary disease) 8 04/09/2023 10/18/2023 Overview (04/09/2023): Note: PFT 2013- mild COPD without response to bronchodilator Note: PFT 2013-mild COPD without response to bronchodilator Immunizations Immunization Administration Dates Next Due Influenza Vaccine, Quadrivalent, PF 11/05/2013 Influenza Vaccine,unspecifie d Formulation 11/24/2021,01/04/2021,10/25/2012 Influenza, High-dose, Quadrivalent 11/24/2021, Influenza, Injectable, Quadrivalent 10/13/2012 Influenza, Quadrivalent, Adjuvanted 11/20/2022 Influenza, Trivalent, Adjuvanted, PF 10/18/2023 Pneumococcal Vaccine Adult - 23 Valent 1 ,12/25/2016,12/14/2015,02/03 Pneumococcal Vaccine, Unspec ified Formulation 05/28/2023 Pneumococcal conjugate PCV20 , polysaccharide [id number] conjugate, adjuvant, PF 05/28/2023 Zoster Vaccine Recombinant 07/06/2023,04/09/2023 Zoster Vaccine, live 12/14/2015 Social History Tobacco Use Types Packs/Day Years Used Date Smoking Tobacco: Never Smokeless Tobacco: Never Tobacco Cessation:Counseling Given: Not Answered Alcohol Use Standard Drinks/Week Comments Not Currently 0 (1 standard drink = 0.6 oz pur e alcohol) [employer] Answer Date Recorded In the past 12 months has [employer], gas, oil, or water [employer] threatened to shut off services in your home? No 08/31/2023 Social Connection and Isolat ion Panel [NHANES] Answer Date Recorded In a typical week, how many times do you talk on the phone with family, friends, or neighbors? More than three times a week 08/31/2023 How often do you get togethe r with friends or relatives? Once a week 08/31/2023 How often do you attend chur or buddhism services? More than 4 times per year 08/31/2023 Do you belong to any clubs o r organizations such as gnosticism groups, unions, fraternal or athletic groups, or school groups? No 08/31/2023 How often do you attend meet ings of the clubs or organizations you belong to? Never 08/31/2023 Are you , , di vorced, , never , or living with a partner? 08/31/2023 AUDIT-C Answer Date Recorded Q1: How often do you have a drink containing alc ohol? Never 08/31/2023 Average Number of Drinks Not on file 024 Q3: How often do you have si x or more drinks on one occasion? Less than monthly 08/31/2023 Overall Financial Resource Strain (CARDIA) Answe r Date Recorded How hard is it for you to pa y for the very basics like food, housing, medical care, and heating? Not very hard 04/08/2023 [facility] Occup[facility] - Occupational Stress Questionnaire Answer Date Recorded Do you feel stress - tense, restless, nervous, or anxious, or unable to sleep at night because your mind is troubled all the time - these days? To some extent 08/31/2023 Exercise Vital Sign Answer Date Recorde d On average, how many days pe r week do you engage in moderate to strenuous exercise (like a brisk walk)? 2 days 08/31/2023 On average, how many minutes do you engage in exercise at this level? 30 min 08/31/2023 Hunger Vital Sign Answer Date Recorded Within [...] medical appointments or from getting medications? No 08/12 In the past 12 months, has l ack of transportation kept you from meetings, work, or from getting things needed for daily living? No 08/31/2023 Housing Stability Vital Sign Answer Manolo e [...] in a half-way (including now)? No 04/08/2023 Housing Stability Vital Sign Answer Manolo e Recorded In the last 12 months, was t here a time when you were not able to pay the mortgage or rent on time? No 08/31/2023 Number of Times Moved in the Last Year Not on fi le 08/31/2023 At any time in the past 12 m [facility], were you homeless or living in a half-way (including now)? No 08/31/2023 Education Answer Date Recorded What is the highest level of school you have completed or the highest degree you have received? 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 Gender Identity Female 11/28/2022 6:48 PM CDT Sexual Orientation Straight 11/28/2022 6: 48 PM CDT Last Filed Vital Signs Vital Sign Reading Time Taken Comments Blood Pressure 132/66 10/18/2023 9:31 AM CDT Pulse 72 10/18/2023 9:31 AM CDT Temperature 36.9 C (98.5 F) 10/18/2023 9:31 AM CDT Respiratory Rate 16 10/18/2023 9:31 AM CDT Oxygen Saturation 93% 10/18/2023 9:31 AM CDT Inhaled Oxygen Concentration - - Weight 62.1 kg (137 lb) 10/18/2023 9:31 AM CDT Height 144.8 cm (4' 9) 10/18/2023 9:31 AM CDT Body Mass Index 29.65 10/18/2023 9:31 AM CDT Plan of Treatment Health Maintenance Due Date Last Done Comments TdaP Immunization 1945 Respiratory Syncytial Virus (RSV) Immunization (Adult) (1 - 1-dose 75+ series) 08/23/2022 SARS-COV-2 Immunization ( season) 2023 11/20/2022, 11/01/2020, 10/11/2020 Diabetes: Foot Exam 04/09/2024 04/09/2023, 04/09/2023, 04/09/2023, Additional history exists Diabetes: Hemoglobin A1c 04/09/2024 024, 03/15/2023, 09/13/2022, Additional history exists Diabetes: Nephropathy Screening 10/07/2024 10/08/2023, 03/15/2023, 07/20/2022, Additional history exists Diabetes: Eye Exam 01/03/2025 01/04/2024, 0 10/04/2023, 07/03/2023, Additional history exists DEXA Bone Density 06/24/2025 06/25/2023 Colonoscopy High Risk Discontinued 04/01/2021 Colonoscopy Discontinued 04/01/2021, 03/15, 01/12/2021 Colorectal Cancer Screening Discontinued Pneumococcal Immunization (50+ years) Completed 05/28/2023, 05/28/2023, 12/03/2017, Additional history exists Zoster Immunization Completed 07/06/2023, 04/09/2023, 12/14/2015 Hepatitis C Virus (HCV) Screening Completed 10/08/2023 Mammogram Discontinued 10/09/2023, 09/2023, 08/20/2023, Additional history exists Influenza Immunization Completed , 11/20/2022, 11/24/2021, Additional history exists Cologuard Discontinued Hepatitis B Immunization Discontinued Immunochemical Fecal Occult Blood Discontinued Meningococcal Immunization (ACWY) Aged Out No longer eligible based on patient's age to complete this topic Rotavirus Immunization Aged Out No lo nger eligible based on patient's age to complete this topic Procedures Procedure Name Priority Date/Time Associated Diagnosis Comments CMP (COMPREHENSIVE METABOLIC PANEL) Routine 10/08/2023 8:05 AM CDT Chronic bronchitis, unspecified chronic bronchitis type (HCC) Type 2 diabetes mellitus without complication, without long-term current use of insulin (HCC) Postmenopausal Abnormal renal function HEMOGLOBIN A1C W/ ESTIMATED GLUCOSE Routine 10/08/2023 8:05 AM CDT Chronic bronchitis, unspecified chronic bronchitis type (HCC) Type 2 diabetes mellitus without complication, without long-term current use of insulin (HCC) Postmenopausal HEPATITIS C ANTIBODY Routine 10/08/2023 8:05 AM CDT Encounter for HCV screening test for low risk patient EMI DIAG BILATERAL DIGITAL W CAD W SERGIO Routine 08/20/2023 12:00 AM CDT Abnormal mammogram HM DILATED EYE EXAM 07/03/2023 1 2:00 AM CDT MEI BONE DENSITOMETRY AXIAL SKELETON Routine 06/25/2023 1:23 PM CDT Postmenopausal from Last 3 Months or Most Recently Relevant to Health Maintenance Results * HEMOGLOBIN A1C W/ ESTIMATED GLUCOSE (10/08/2023 8:05 AM CDT) Pathologist [facility] HGB-A1C 5.5 4.0 - 6.0 % 10/08/2023 12:54 PM CDT [facility] Est Average Glucose 111.2 mg/dL 10/08/2023 12:54 PM CDT [facility] Blood Venipuncture / Unknown 10/08/2023 8:05 AM CDT 10/08/2023 8:05 AM CDT Narrative [facility] - 10/08/2023 12:54 PM CDT HEMOGLOBIN A1C: DIABETIC PATIENTS: WELL-CONTROLLED: 6.2 - 7.0 INTERMEDIATE WELL-CONTROLLED: 7.0 - 9.0 POORLY-CONTROLLED: >9.0 Yee Gannon APRN, CNP CHEMISTRY ORDER RAFA Final Result [facility] [place] [address] * HEPATITIS C ANTIBODY (10/08/2023 8:05 AM CDT) Pathologist [facility] hepatitis C antibody 0.06 <1 S/CO 10/08/2023 9:49 PM CDT [facility] Comment: Signal/Cutoff ratio < 0.79 is Nondetected Signal/Cutoff ratio 0.80-0.99 is Grayzone Signal/Cutoff ratio > 0.99 is Detected Supplemental assays are recommended if signal/cutoff ratio is >/=1.00. Signal/cutoff ratio result >/= 5.00 is 97% predictive of positivity for recombinant immunoblot assay (RIBA) and will be reported to the [place] Department of Public Health as required. Blood Venipuncture / Unknown 10/08/2023 8:05 AM CDT 10/08/2023 8:05 AM CDT Yee Gannon APRN, CNP CHEMISTRY ORDER RAFA Final Result [facility] [address] [place] [address], * (ABNORMAL) CMP (COMPREHENSIVE METABOLIC PANEL) (10/08/2023 8:05 AM CDT) SODIUM 143 136 - 145 mmol/L 10/08/2023 12:54 PM CDT [facility] POTASSIUM 4.0 3.5 - 5.1 mmol/L 10/08/2023 12:54 PM CDT [facility] CHLORIDE 106 98 - 107 mmol/L 10/08/2023 12:54 PM CDT [facility] CO2, VENOUS 29 22 - 30 mmol/L 10/08/2023 12:54 PM CDT [facility] ANION GAP 12.0 <18.0 mmol/L 10/08/2023 12:54 PM CDT [facility] GLUCOSE 90 70 - 99 mg/dL 10/08/2023 12:54 PM CDT [facility] BUN 26(H) 10 - 20 mg/dL 10/08/2023 12:54 PM CDT [facility] CREATININE, BLOOD 1.35(H) 0.60 - 1.00 mg/dL 10/08/2023 12:54 PM CDT [facility] BUN/CREATININE RATIO 19 12 - 20 ratio 10/08/2023 12:54 PM CDT [facility] TOTAL PROTEIN 6.6 6.3 - 8.2 g/dL 10/08/2023 12:54 PM CDT [facility] ALBUMIN 3.9 3.5 - 5.0 g/dL 10/08/2023 12:54 PM CDT [facility] A/G RATIO 1.4 1.0 - 2.2 10/08/2023 12:54 PM CDT [facility] CALCIUM 9.9 8.7 - 10.5 mg/dL 10/08/2023 12:54 PM CDT [facility] T BILI 0.5 0.2 - 1.2 mg/dL 10/08/2023 12:54 PM CDT [facility] SGOT (AST) 17 5 - 34 U/L 10/08/2023 12:54 PM CDT [facility] SGPT (ALT) 15 0 - 55 U/L 10/08/2023 12:54 PM CDT [facility] ALKALINE PHOSPHATASE 67 40 - 150 U/L 10/08/2023 12:54 PM CDT [facility] IS THE PATIENT REQUIRED TO BE FASTING? No 10/08/2023 12:54 PM CDT [facility] GFR, ESTIMATED 41(L) >=60 10/08/2023 12:54 PM CDT [facility] Comment: Creatinine Clearance is the preferred criteria for selecting drug dose adjustments in renally impaired patients. The GFR is provided as additional pertinent clinical information. GFR is reported in mL/min/1.73 sq m. Calculation based on the Chronic Kidney Disease Epidemiology Collaboration (CKD- EPI) equation refit without adjustment for race. GFR, EST. 46(L) >=60 024 12:54 PM CDT [facility] GFR, EST. NONAFRICAN 38(L) >=60 10/08/2023 12:54 PM CDT [facility] Blood Venipuncture / Unknown 10/08/2023 8:05 AM CDT 10/08/2023 8:05 AM CDT us Yee Gannon HEALTH AND WELLNESS DIRECTOR, HAND SANDER CHEMISTRY ORDER RAFA Final Result [facility] [place] [address] * EMI DIAG BILATERAL DIGITAL W CAD W SERGIO (08/20/2023 12:00 AM CDT) Anatomical Region Laterality Modality breast Bilateral Mammography 08/20/2023 Yee Gannon APRN, CNP IMG MAMMO ORDER RAFA Final Result * HM DILATED EYE EXAM (07/03/2023 12:00 AM CDT) 07/03/2023 us Provider Scan PROCEDURE/MINOR SURGICAL ORDERAB LES Final Result SCAN * [facility] BONE DENSITOMETRY AXIAL SKELETON (06/25/2023 1:23 PM CDT) Anatomical Region Laterality Modality BODY N/A Computed Radiogr aphy 06/25/2023 1:47 PM CDT Impressions 06/25/2023 1:50 PM CDT IMPRESSION: Normal bone mass REFERENCE: Bone mineral density: T-Score: Normal (T-score above or = -1.0) Low bone mass (T-score between -1.0 and -2.5) replaces the previously used term osteopenia Osteoporosis (T-score = or below -2.5) Z-Score: Within the expected range for age (Z-score above -2.0) Below the expected range for age (Z-score is -2.0 or below) Please see below follow up recommendations. Medical evaluation for secondary causes of low bone mineral density may be appropriate. FRAX is a World Health Organization validated fracture risk assessment tool that calculates a person's 10 year probability of a major osteoporosis related fracture and hip fracture. According to the National Osteoporosis Foundation guidelines, postmenopausal women and men age 50 or older with low bone mass and a 10 year probability of a major osteoporosis related fracture = or greater than 20% or a 10 year probability of a hip fracture = or greater than 3% should be considered for pharmacological treatment for the prevention of osteoporosis. For further information, including treatment recommendations, please refer to the 2019 ISCD Official Positions (http://www.iscd.org) and the NOF's Clinician's Guide to Prevention and Treatment of Osteoporosis (http://www.nof.org/professionals/clinical-guidelines) Narrative 06/25/2023 1:50 PM CDT EXAM DESCRIPTION: [facility] BONE DENSITOMETRY AXIAL SKELETON REASON FOR STUDY: 77 y/o year old F with given history of: Post menopausal status. History of taking vitamin-D, multivitamin and calcium. Medicare Nurse/Model: [employer] (S/N [id number]) CLINICAL INFORMATION: Current height: 58 inches Maximum height: 60 inches Weight: 141 pounds Risk factors: None COMPARISON: None available FINDINGS: AP LUMBAR SPINE L1-L4: Total BMD is 1.496 g/cm2 T-score is 2.4 LEFT HIP: Total BMD is 1.090 g/cm2 T-score is 0.7 Femoral neck BMD is 0.952 g/cm2 T-score is -0.6 FRAX: FRAX not reported due to T-scores of hip, femoral neck and/or spine being at or above -1.0 (Normal). THIS IS AN ELECTRONICALLY VERIFIED FINAL REPORT 06/25/2023 1:47 PM - Electronically signed by Jenn Abdul M.D. TW: Report ID: [id number] Reading Location: [id number] Procedure Note Jenn Abdul MD - 06/25/2023 EXAM DESCRIPTION: [facility] BONE DENSITOMETRY AXIAL SKELETON REASON FOR STUDY: 77 y/o year old F with given history of: Post menopausal status. History of taking vitamin-D, multivitamin and calcium. Medicare Nurse/Model: [employer] (S/N [id number]) CLINICAL INFORMATION: Current height: 58 inches Maximum height: 60 inches Weight: 141 pounds Risk factors: None COMPARISON: None available FINDINGS: AP LUMBAR SPINE L1-L4: Total BMD is 1.496 g/cm2 T-score is 2.4 LEFT HIP: Total BMD is 1.090 g/cm2 T-score is 0.7 Femoral neck BMD is 0.952 g/cm2 T-score is -0.6 FRAX: FRAX not reported due to T-scores of hip, femoral neck and/or spine being at or above -1.0 (Normal). THIS IS AN ELECTRONICALLY VERIFIED FINAL REPORT 06/25/2023 1:47 PM - Electronically signed by Jenn Abdul M.D. TW: TW Report ID: [id number] Reading Location: [place] [address] IMPRESSION: Normal bone mass REFERENCE: Bone mineral density: T-Score: Normal (T-score above or = -1.0) Low bone mass (T-score between -1.0 and -2.5) replaces the previously used term osteopenia Osteoporosis (T-score = or below -2.5) Z-Score: Within the expected range for age (Z-score above -2.0) Below the expected range for age (Z-score is -2.0 or below) Please see below follow up recommendations. Medical evaluation for secondary causes of low bone mineral density may be appropriate. FRAX is a World Health Organization validated fracture risk assessment tool that calculates a person's 10 year probability of a major osteoporosis related fracture and hip fracture. According to the National Osteoporosis Foundation guidelines, postmenopausal women and men age 50 or older with low bone mass and a 10 year probability of a major osteoporosis related fracture = or greater than 20% or a 10 year probability of a hip fracture = or greater than 3% should be considered for pharmacological treatment for the prevention of osteoporosis. For further information, including treatment recommendations, please refer to the 2019 ISCD Official Positions (http://www.iscd.org) and the NOF's Clinician's Guide to Prevention and Treatment of Osteoporosis (http://www.nof.org/professionals/clinical-guidelines) Yee Gannon APRN, CNP IMG DEXA ORDERA BLES Final Result from Last 3 Months or Most Recently Relevant to Health Maintenance Insurance MEDICARE [facility]
--- OUTSIDE RECORDS SUMMARY | 2024-04-20 13:15 | XMS_ITS | Encounter Summary ---
Author Organization [facility] Address [address] [place] [address] Phone Care Team Providers Care Post Doc Fellowship Name Role Phone Yee Gannon APRN, CNP Primary Care P rovider Reason for Visit * Reason Comments Medication Refill Encounter Details Date Type Department Care Team (Late st Contact Info) Description 05/22/2022 Refill [facility] - Primary Care - [place] [address] [place] [address] Yee Gannon APRN, CNP [address] [place] [address] Medication Refill Social History Tobacco Use Types Packs/Day Years Used Date Smoking Tobacco: Never Smokeless Tobacco: Never Alcohol Use Standard Drinks/Week Comments Not Currently 0 (1 standard drink = 0.6 oz pur e alcohol) Education Answer Date Recorded What is the highest level of school you have completed or the highest degree you have received? 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 No / Unsure 05/02/2022 2:29 PM CDT documented as of this encounter Miscellaneous Notes * Telephone Encounter - Teodora Bhatia RN - 05/22/2022 3:42 PM CDT buPROPion (WELLBUTRIN) 150 MG XL tablet 90 Tablet 0 05/02/2022 Refill too soon documented in this encounter Plan of Treatment Not on file documented as of this encounter Visit Diagnoses Diagnosis Sexual dysfunction in female documented in this encounter Care Teams Post Doc Fellowship Relationship Specialty Start Date End Date Yee Gannon APRN, [employer] [address] [place] [address] PCP - General Advanced Practice Nurse 04/13/2201/28 documented as of this encounter
--- OUTSIDE RECORDS SUMMARY | 2024-04-20 13:15 | XMS_ITS | Encounter Summary ---
Author Organization [facility] Address [address] [place] [id number] Care Team Providers Care Poke In Name Role Phone Angelica Jacinto MACHINE OPERATIONS SUPERVISOR Primary Care Provider Unav ailable Jayleen Swan MD Primary Care Provider + Conchis Parsons MD Unavailable [phone] Kevin Fonseca MD Unavailable Encounter Details Date Type Department Care Team (Late st Contact Info) Description 08/03/2020 Hospital Follow-up Call [facility] Cardiac Rehab [address] [place] [address] Clair Morrison, RN Social History Tobacco Use Types Packs/Day Years Used Date Smoking Tobacco: Never Smokeless Tobacco: Never Comments:Provider to admissions counselor Alcohol Use Standard Drinks/Week Comments No [...] CDT Gender Identity Female 03/07/2021 3:32 PM PROGRAM COORDINATOR FOR [employer]ID[employer] Sexual Orientation Straight 03/07/2021 3: 32 PM PROGRAM COORDINATOR [employer] COVID-19 Exposure Response Date Recorded In the [...] Description 04/23/2024 10:40 AM CDT Office Visit [facility] Multispecialty Care - [facility] [address] [facility], [address] [place] [address] Jayleen Swan MD [address] [place] [address] Roque Guy PA-C [address] [facility] [address] [place] [address] 09/29/2024 9:50 AM CDT Allied Health/Nurse Visit [address] [address] Jayleen Swan MD [address] [place] [address] 10/06/2024 8:50 AM CDT Office Visit [address] [address] Jayleen Swan MD [address] [place] [address] 04/07/2025 10:30 AM PROGRAM COORDINATOR FOR [employer] Office Visit [address] [address] Jayleen Swan MD [address] [facility] [address] [place] [id number] documented as of this encounter Visit Diagnoses Not on filedocumented in this encounter Additional Health Concerns Infection Onset Date Last Indicated Resolved Time COVID-19 Rule Out 08/10/2020 08/10/2020 01/03/2021 7:05 PM PROGRAM COORDINATOR FOR [employer] COVID-19 Rule Out 03/28/2021 03/28/2021 03/28/2021 9:19 AM PROGRAM COORDINATOR FOR [employer] COVID-19 Rule Out 03/28/2021 03/28/2021 03/28/2021 8:36 PM PROGRAM COORDINATOR FOR [employer] Assessment Noted Time PHQ-9 Depression Total Score: 2 08/03/19 21 4:02 PM CDT documented as of this encounter Care Teams Poke In Relationship Specialty Start Date End Date Angelica Jacinto FNP PCP - General FAMILY PRACTICE 11/21/17 03/01/22 Jayleen Swan MD [address] [place] [address] PCP - General FAMILY PRACTICE 12/19/23 [place] [address] [place] [address] Consulting Physician PULMONARY DISEASE 04/01/24 5 Kevin Fonseca MD 3 [facility] [address] [place], [place] [id number] Consulting Physician GASTROENTEROLOGY 04/01/24 04/01/24 [address] [place] [address] 03/09/24 documented as of this encounter
--- OUTSIDE RECORDS SUMMARY | 2024-04-20 13:15 | XMS_ITS | Encounter Summary ---
Author Organization [facility] Address [address] [place] [address] Phone Care Team Providers Care Academic Coordinator Name Role Phone Yee Gannon APRN, CNP Primary Care P rovider Reason for Visit * Reason Comments Medication Refill Encounter Details Date Type Department Care Team (Late st Contact Info) Description 07/15/2023 Refill [facility] - Primary Care - [place] [address] [place] [address] Yee Gannon APRN, CNP [address] [place] [address] Medication Refill Social History Tobacco Use Types Packs/Day Years Used Date Smoking Tobacco: Never Smokeless Tobacco: Never Alcohol Use Standard Drinks/Week Comments Not Currently 0 (1 standard drink = 0.6 oz pur e alcohol) [facility] Utilities Answer Date Recorded In the past 12 months has [employer] electric, gas, oil, or water company threatened [...] often do you attend chur ch or anabaptist services? More than 4 times per year 04/08/2023 Do you belong to any clubs o r organizations such as alevism groups, unions, fraternal or athletic groups, or [...] care, and heating? Not very hard 04/08/2023 [facility] - Occupational Stress [...] place to sleep or slept in a nursing home (including now)? No 04/08/2023 Education Answer Date Recorded What is the highest level of school you have completed or the highest degree you have received? 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 Requested Prescriptions Pending Prescriptions Disp Refills omeprazole (PriLOSEC) 40 MG CAPSULE DELAYED RELEASE [Pharmacy Med Name: OMEPRAZOLE DR CAPS 40MG] 90Capsule 0 Sig: TAKE 1 CAPSULE DAILY Proton Pump Inhibitors Protocol Passed - 07/15/2023 6:06 AM Passed - Visit with relevant provider in past 12 months or upcoming 90 days Recent Visits Date Type Provider Dept 07/12/23 Office Visit Yee Gannon APRN, RAYSHAWN [facility] 04/09/23 Office Visit Yee Gannon APRN, CNP [facility] 11/28/22 Office Visit Yee Gannon APRN, CNP [facility] 09/27/22 Office Visit Donavon Hoff, ALEC [facility] 09/22/22 Office Visit Donavon Hoff, PAC [facility] 09/18/22 Office Visit Donavon Hoff, PAC [facility] 07/20/22 Office Visit Vivi Morse, [facility] Showing recent visits within past 365 days and meeting all other requirements Future Appointments Date Type Provider Dept 10/08/23 Appointment Lab, [facility] Showing future appointments within next 90 days and meeting all other requirements documented in this encounter Plan of Treatment Not on file documented as of this encounter Visit Diagnoses Not on filedocumented in this encounter Care Teams Academic Coordinator Relationship Specialty Start Date End Date Yee Gannon APRN, RAYSHAWN [address] [place] [address] PCP - General Advanced Practice Nurse 04/13/2201/28 documented as of this encounter
[2024-04-20 13:22] VITALS: BP 155/63; PULSE 72; RESP 15; TEMP 36.5; O2SAT 93
--- OUTSIDE RECORDS SUMMARY | 2024-04-20 13:37 | XMS_ITS | Clinical Summary ---
Author Organization [facility] Facility Address [address] [place] [address] Care Team Providers Care Tub Tender Name Role Phone Yee Gannon APN Primary [...] 9.6 8.7 - 10.7 mg/dL eGFR Non-Afr Lebanese 41 (TSH) Thyroid Stimulating Hormone 0.94 Hemoglobin A1C 5.4 4.0 - 6.0 Triglycerides 82 Cholesterol, Total 169 HDL 54 mg/dL LDL-Calculated 99 Chol/HDL Ratio (External Entry) 3.1 Non HDL Cholesterol 115 03/15/2023 Historical Provider LAB BLOOD ORDERABLES Ariella l Result from Last 3 Months or Most Recently Relevant to Health Maintenance Insurance [facility] MEDICARE Advance Directives Documents on File Type Date Recorded Patient Feeder Catcher Tobacco Expl anation Advance Care Planning 09/10/2023 3:37 PM Care Teams Tub Tender Relationship Specialty Start Date End Date Yee Gannon APN [address] [place] [address] PCP - General Nurse Practitioner 06/22/23
--- OUTSIDE RECORDS SUMMARY | 2024-04-20 13:37 | XMS_ITS | Encounter Summary ---
Author Organization [facility] Address [address] [place] [address] Phone Care Team Providers Care Chaser Tar Name Role Phone Yee Gannon APRN, CNP Primary Care P rovider Reason for Visit * Reason Comments Medication Refill Encounter Details Date Type Department Care Team (Late st Contact Info) Description 05/02/2023 Refill [facility] - Primary Care - [place] [address] [place] [address] Yee Gannon APRN, CNP [address] [place] [address] Medication Refill Social History Tobacco Use Types Packs/Day Years Used Date Smoking Tobacco: Never Smokeless Tobacco: Never Alcohol Use Standard Drinks/Week Comments Not Currently 0 (1 standard drink = 0.6 oz pur e alcohol) [facility] Utilities Answer Date Recorded In the past 12 months has [employer] electric, gas, oil, or water company threatened [...] often do you attend chur ch or mu-ism services? More than 4 times per year 04/08/2023 Do you belong to any clubs o r organizations such as christianity groups, unions, fraternal or athletic groups, or [...] care, and heating? Not very hard 04/08/2023 [facility] Occupat ional Health - Occupational Stress [...] place to sleep or slept in a long term (including now)? No 04/08/2023 Education Answer Date Recorded What is the highest level of school you have completed or the highest degree you have received? 

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
--- OUTSIDE RECORDS SUMMARY | 2024-04-20 13:37 | XMS_ITS | Encounter Summary ---
Author Organization [facility] Address [address] [place] [address] Care Team Providers Care Flex O Writer Operator Name Role Phone Angelica Jacinto PEER HEALTH PROMOTER Primary Care Provider Unav ailable Jayleen Swan MD Primary Care Provider + Conchis Parsons MD Unavailable [phone] Kevin Fonseca MD Unavailable Encounter Details Date Type Department Care Team (Late st Contact Info) Description 08/03/2020 Hospital Follow-up Call [facility] Cardiac Rehab [address] [place] [address] Clair Morrison, RN Social History Tobacco Use Types Packs/Day Years Used Date Smoking Tobacco: Never Smokeless Tobacco: Never Comments:Provider to industrial relations counselor Alcohol Use Standard Drinks/Week Comments No [...] CDT Gender Identity Female 03/07/2021 3:32 PM BACK HANGER Sexual Orientation Straight 03/07/2021 3: 32 PM BACK HANGER COVID-19 Exposure Response Date Recorded In the [...] Description 04/23/2024 10:40 AM CDT Office Visit [facility] Multispecialty Care - [facility] [address] [facility], [address] [place] [address] Jayleen Swan MD [address] [place] [address] Roque Guy PA-C 3 [facility] [address] [place] [address] 09/29/2024 9:50 AM CDT Allied Health/Nurse Visit [address] [address] Jayleen Swan MD [address] [place] [address] 10/06/2024 8:50 AM CDT Office Visit [address] [address] Jayleen Swan MD [address] [place] [address] 04/07/2025 10:30 AM BACK HANGER Office Visit [address] [address] Jayleen Swan MD [address] [facility] [address] [place] [id number] documented as of this encounter Visit Diagnoses Not on filedocumented in this encounter Additional Health Concerns Infection Onset Date Last Indicated Resolved Time COVID-19 Rule Out 08/10/2020 08/10/2020 01/03/2021 7:05 PM BACK HANGER COVID-19 Rule Out 03/28/2021 03/28/2021 03/28/2021 9:19 AM BACK HANGER COVID-19 Rule Out 03/28/2021 03/28/2021 03/28/2021 8:36 PM BACK HANGER Assessment Noted Time PHQ-9 Depression Total Score: 2 08/03/19 21 4:02 PM CDT documented as of this encounter Care Teams Flex O Writer Operator Relationship Specialty Start Date End Date Angelica Jacinto FNP PCP - General FAMILY PRACTICE 11/21/17 03/01/22 Jayleen Swan MD [address] [place] [address] PCP - General FAMILY PRACTICE 12/19/23 [place] [address] [place] [address] Consulting Physician PULMONARY DISEASE 04/01/24 5 Kevin Fonseca MD 3 [facility] [address] [place], [place] [address] Consulting Physician GASTROENTEROLOGY 04/01/24 04/01/24 Martina [address] [place] [address] 03/09/24 documented as of this encounter
--- OUTSIDE RECORDS SUMMARY | 2024-04-20 13:37 | XMS_ITS | Encounter Summary ---
Author Organization [facility] Address [address] [place] [address] Phone Care Team Providers Care High School Academic Coach Name Role Phone Yee Gannon APRN, CNP Primary Care P rovider Reason for Visit * Reason Comments Medication Refill Encounter Details Date Type Department Care Team (Late st Contact Info) Description 06/12/2023 Refill [facility] - Primary Care - [place] [address] [place] [address] Yee Gannon APRN, CNP [address] [place] [address] Medication Refill Social History Tobacco Use Types Packs/Day Years Used Date Smoking Tobacco: Never Smokeless Tobacco: Never Alcohol Use Standard Drinks/Week Comments Not Currently 0 (1 standard drink = 0.6 oz pur e alcohol) [facility] Utilities Answer Date Recorded In the past 12 months has [employer] electric, gas, oil, or water company threatened [...] often do you attend chur ch or baptist services? More than 4 times per year 04/08/2023 Do you belong to any clubs o r organizations such as hinduism groups, unions, fraternal or athletic groups, or [...] care, and heating? Not very hard 04/08/2023 [facility] of Occupat ional Health - Occupational Stress [...] place to sleep or slept in a snf (including now)? No 04/08/2023 Education Answer Date Recorded What is the highest level of school you have completed or the highest degree you have received? 12th grade 04/29/2022 Sexually Active Control Partners Comments Not Currently Comments No Sex and Gender Information Value Date Recorded Sex Assigned at Not on file Legal Sex Female 9:02 AM FROG SHAKER Gender Identity Female 11/28/2022 6:48 PM CDT Sexual Orientation Straight 11/28/2022 6: 48 PM CDT documented as of this encounter Plan of Treatment Not on file documented as of this encounter Visit Diagnoses Diagnosis Essential hypertension Unspecified essential hypertension Hypothyroidism, unspecified type documented in this encounter Care Teams High School Academic Coach Relationship Specialty Start Date End Date Yee Gannon, ENGINEERING PROFESSOR, TRACK MECHANIC [address] [address] PCP - General Advanced Practice Nurse 04/13/2201/28 documented as of this encounter
--- OUTSIDE RECORDS SUMMARY | 2024-04-20 13:37 | XMS_ITS | Encounter Summary ---
Author Organization [facility] Address [address] [place] [address] Phone Care Team Providers Care Trim Installer Name Role Phone Yee Gannon APRN, CNP Primary Care P rovider Reason for Visit * Reason Comments Medication Refill Encounter Details Date Type Department Care Team (Late st Contact Info) Description 07/14/2023 Refill [facility] - Primary Care - [place] [address] [place] [address] Yee Gannon APRN, CNP [address] [place] [address] Medication Refill Social History Tobacco Use Types Packs/Day Years Used Date Smoking Tobacco: Never Smokeless Tobacco: Never Alcohol Use Standard Drinks/Week Comments Not Currently 0 (1 standard drink = 0.6 oz pur e alcohol) [facility] Utilities Answer Date Recorded In the past 12 months has [employer] electric, gas, oil, or water company threatened [...] any clubs o r organizations such as adventism groups, unions, fraternal or athletic groups, or [...] care, and heating? Not very hard 04/08/2023 [facility] of Occupat ional Health - [...] place to sleep or slept in a prison (including now)? No 04/08/2023 Education Answer Date Recorded What is the highest level of school you have completed or the highest degree you have received? 12th grade 04/29/2022 Sexually Active Control Partners Comments Not Currently Comments No Sex and Gender Information Value Date Recorded Sex Assigned at Not on file Legal Sex Female 9:02 AM CRIME LAB ANALYST Gender Identity Female 11/28/2022 6:48 PM CDT [...] 07/12/23 Office Visit Yee Gannon APRN, RAYSHAWN [facility] 04/09/23 Office Visit Yee Gannon APRN, CNP [facility] Showing recent visits within past 182 days and meeting all other requirements Future Appointments Date Type Provider Dept 10/08/23 Appointment Lab, [facility] Showing future appointments within next 90 days and meeting all other requirements Passed - No PRN Use for Trazodone Passed - Patient has established therapy with Serotonin Modulators for at least 6 months documented in this encounter Plan of Treatment Not on file documented as of this encounter Visit Diagnoses Diagnosis Insomnia, unspecified type documented in this encounter Care Teams Trim Installer Relationship Specialty Start Date End Date Yee Gannon APRN, CNP [address] [place] [address] PCP - General Advanced Practice Nurse 04/13/2201/28 documented as of this encounter
--- OUTSIDE RECORDS SUMMARY | 2024-04-20 13:37 | XMS_ITS | Encounter Summary ---
Author Organization [facility] Address [address] [place] [address] Phone Care Team Providers Care Foundry Supervisor Name Role Phone Yee Gannon APRN, CNP Primary Care P rovider Reason for Visit * Reason Comments Medication Refill Encounter Details Date Type Department Care Team (Late st Contact Info) Description 03/27/2023 Refill [facility] - Primary Care - [place] [address] [place] [address] Yee Gannon APRN, CNP [address] [place] [address] Medication Refill Social History Tobacco [...] on file Legal Sex Female 9:02 AM ORACLE MANAGER Gender Identity Female 11/28/2022 6:48 PM CDT Sexual Orientation Straight 11/28/2022 6: 48 PM CDT documented as of this encounter Plan of Treatment Not on file documented as of this encounter Visit Diagnoses Not on filedocumented in this encounter Care Teams Foundry Supervisor Relationship Specialty Start Date End Date Yee Gannon APRN, COMMODITY TRADER [address] [address] PCP - General Advanced Practice Nurse 04/13/2201/28 documented as of this encounter
--- OUTSIDE RECORDS SUMMARY | 2024-04-20 13:37 | XMS_ITS | Encounter Summary ---
Author Organization [facility] Address [address] [place] [address] Care Team Providers Care Quality Rep Name Role Phone Jayleen Swan MD Primary Care Provider + Conchis Parsons MD Unavailable [phone] Kevin Fonseca MD Unavailable Encounter Details Date Type Department Care Team (Late st Contact Info) Description 12/27/2023 Agari Message [facility] [address] [place] [address] [facility] Provider Proof of Name Change [...] CDT Gender Identity Female 03/07/2021 3:32 PM VOICE INSTRUCTOR Sexual Orientation Straight 03/07/2021 3: 32 PM VOICE INSTRUCTOR documented as of this encounter Functional Status [...] Description 04/23/2024 10:40 AM CDT Office Visit [facility] Multispecialty Care - [address], [address] [place] [id number] Jayleen Swan MD [address] [address] Roque Guy PA-C 3 [facility] [address] [place] [address] 09/29/2024 9:50 AM CDT Allied Health/Nurse Visit [facility] - [place] [address] [address] Jayleen Swan MD [address] [place] [phone] 10/06/2024 8:50 AM CDT Office Visit [facility] - [address] [place] [address] Jayleen Swan MD [address] [place] [address] [address] [place] [phone] 04/07/2025 10:30 AM VOICE INSTRUCTOR Office Visit [address] [place] [address] Jayleen Swan MD [address] [facility] [address] [place] [phone] documented as of this encounter Visit Diagnoses Not on filedocumented in this encounter Additional Health Concerns Assessment Noted Time PHQ-9 Depression Total Score: 18 022 10:40 AM CDT documented as of this encounter Care Teams Quality Rep Relationship Specialty Start Date End Date Jayleen Swan MD [address] [facility] [address] [place] [address] PCP - General FAMILY PRACTICE 12/19/23 [place] [address] [place] [address] Consulting Physician PULMONARY DISEASE 04/01/24 Kevin Zuñiga MD 3 [facility] [address] [place] [address] Consulting Physician GASTROENTEROLOGY 04/01/24 04/01/24 Martina Lennon [address] [place] [address] 03/09/24 documented as of this encounter
--- OUTSIDE RECORDS SUMMARY | 2024-04-20 13:37 | XMS_ITS | Clinical Summary ---
Author Organization [facility] Address [address] [place] [id number] Care Team Providers Care Explosion Welder Name Role Phone Jayleen Swan MD Primary [...] complication, without long-term current use of insulin ([facility]) 1 Device by Does not apply route daily as needed. 1 kit 04/28/19 20 Active Glucose Blood (COOL BLOOD GLUCOSE TEST STRIPS) test stripIndications:T ype 2 diabetes mellitus without complication, without long-term current use of insulin ([facility]) 1 strip by Other route [...] neuropathy, right 10/04/2023 Overview (12/19/2023): Goes to [facility]. Needed an MRI. Has an appt scheduled later this month. Stage 3 chronic kidney disease 07/20/2023 Overview (04/01/2024): In 07/2022 GFR was 56. Down to 30s in 2023. Scheduled with Dr. Hassan later this month. Assessment & Plan (04/01/2024 3:37 PM CRAYON PAINTER): GFR is stable. Will wait for nephrology recommendations. Assessment & Plan (01/28/2024 12:06 PM CRAYON PAINTER): Referral to local nephrology entered. Encouraged her to keep her appointment as scheduled for now. Assessment & Plan (12/19/2023 11:08 AM CRAYON PAINTER): Chronic. Recent loss of kidney function with [...] (03/08/2021): Added automatically from request for surgery [id number] Allergic rhinitis, unspecifi ed seasonality, unspecified trigger [...] scope. Assessment & Plan (04/01/2024 3:41 PM CRAYON PAINTER): Not currently controlled despite PPI. Will request GI evaluate her to determine whether she should have an EGD. Assessment & Plan (12/19/2023 11:09 AM CRAYON PAINTER): Chronic. Controlled. Will trial omeprazole 20 mg daily to see if we can reduce her PPI use due to long-term risks. COPD (chronic obstructive pu lmonary disease) ([facility]) 08/21/2017 Overview (12/27/2023): PFT 2013-mild COPD without response to bronchodilator. Has prescriptions for symbicort and albuterol. Cough is now improved since starting her inhaler at nighttime. Assessment & Plan (04/01/2024 3:37 PM CRAYON PAINTER): Currently managed with albuterol alone. She will initiate Symbicort at the onset of any illness in the future. Assessment & Plan (12/27/2023 10:30 AM CRAYON PAINTER): Improved control with better compliance with her albuterol inhaler. Assessment & Plan (12/19/2023 11:08 AM CRAYON PAINTER): Chronic. Possibly not controlled due to cough [...] past. Assessment & Plan (04/01/2024 3:40 PM CRAYON PAINTER): Chronic. Reasonably controlled with melatonin. Assessment & Plan (01/28/2024 12:06 PM CRAYON PAINTER): Discussed limited options in the future due to side effect profiles of medications. Recommend continuing with limited Tylenol PM. Patient is willing to allow for a month of adjustment and then trial melatonin again. Assessment & Plan (12/27/2023 10:29 AM CRAYON PAINTER): Discontinue trazodone and Tylenol PM in favor of mirtazapine. Discontinue citalopram as well since mirtazapine should help in this regard as well. Assessment & Plan (12/19/2023 11:09 AM CRAYON PAINTER): Not controlled. Discussed that we may consider replacing trazodone and citalopram with mirtazapine which may help with sleep and avoid antihistamines as she has been taking. Renal cyst 10/09/2016 Overview (12/24/2017): Date Onset: 10/09/2016 Mixed hyperlipidemia 07/24/2016 Overview (12/19/2023): Patient takes atorvastatin 40 mg daily. Assessment & Plan (04/01/2024 3:39 PM CRAYON PAINTER): CMP and lipid panel at goal. Continue atorvastatin 40 mg daily. Assessment & Plan (01/28/2024 12:08 PM CRAYON PAINTER): Repeat lipid panel in May along with CMP. Continue atorvastatin. Assessment & Plan (12/19/2023 11:07 AM CRAYON PAINTER): Chronic and controlled. CMP and lipid panel [...] well. Assessment & Plan (04/01/2024 3:39 PM CRAYON PAINTER): Chronic and controlled. Unfortunately has side effects from lisinopril. Will switch to equivalent dose of valsartan 160 mg daily. Request she monitor her blood pressures at home. Assessment & Plan (01/28/2024 12:07 PM CRAYON PAINTER): Chronic and now controlled. Continue lisinopril 30 mg daily. She will continue to monitor her home readings. Assessment & Plan (12/27/2023 10:28 AM CRAYON PAINTER): Controlled. Blood pressure seems adequate range with 30 mg daily. Will continue this and she will follow-up with nephrology as previously scheduled. Assessment & Plan (12/19/2023 11:07 AM CRAYON PAINTER): Chronic and controlled today. Concerned about her [...] 09/2023. Assessment & Plan (04/01/2024 3:39 PM CRAYON PAINTER): TSH controlled. Continue levothyroxine. Assessment & Plan (12/19/2023 11:09 AM CRAYON PAINTER): TSH reviewed. Chronic and controlled. Continue levothyroxine. In the future may consider changing recommendation for how she is taking prescription but there appears to be confusion about medication and do not wish to exacerbate this. YAZAN (obstructive sleep apnea) 07/24/2016 Overview (12/19/2023): Has inspire. Type 2 diabetes mellitus wit h diabetic nephropathy, without long-term current use of insulin ([facility]) 06/20/2016 Overview (04/01/2024): Date Onset: 06/20/2016. A1c 6 %. Metformin discontinued after kidney disease. Managing with diet alone. Martina lennon in [place]. Assessment & Plan (04/01/2024 3:38 PM CRAYON PAINTER): Chronic. Controlled without medication. Discussed dietary changes specifically increasing high-fiber foods and reducing saturated fats and simple sugars. Will request diabetic eye exam from Martnia lennon. RLS (restless legs syndrome) 06/20/2016 Overview (12/19/2023): Date Onset: 06/20/2016. Takes pramipexole which works well. Assessment & Plan (12/19/2023 11:09 AM CRAYON PAINTER): Controlled. Continue pramipexole. Chronic. Encounters Date Type Department Care Team Description 04/02/[address] [place] [id number] Jayleen Swan MD Record Request 04/01/2024 2:00 PM CRAYON PAINTER Office Visit [address] [place] [address] Jayleen Swan MD Follow Up (2 mo ck on DM. ) 04/01/2024 1:00 PM CRAYON PAINTER Office Visit [address] [place] [address] Jayleen Swan MD Medicare Wellness (Patient presents today for her Medicare Annual Wellness Visit) 04/01/[address] [place] [address] Jayleen Swan MD Health Maintenance Follow Up (Request for DM eye exam) 04/01/2024 Travel 03/25/2024 7:40 AM CRAYON PAINTER Laboratory Only [address] [place] [address] Jayleen Swan MD 03/25/2024 Travel 02/26/2024 Telephone [place] [phone] [facility] [address] [place] [address] Jayleen Swan MD Refill Request 01/28/2024 9:30 AM CRAYON PAINTER Office Visit [place] [phone] [facility] [address] [place] [address] Jayleen Swan MD Follow Up (Here for [...] 23)Aka Pneumovax 12/03/2017 Shingrix 07/06/2023,04/09/2023 Zoster (Zostavax) 35154 Unt/0.65Ml 12/14/2015 Family History Medical History Relation [...] CDT Gender Identity Female 03/07/2021 3:32 PM CRAYON PAINTER Sexual Orientation Straight 03/07/2021 3: 32 PM CRAYON PAINTER Last Filed Vital Signs Vital Sign Reading Time Taken Comments Blood Pressure 128/68 04/01/2024 1:53 PM CRAYON PAINTER Pulse 72 04/01/2024 1:53 PM CRAYON PAINTER Temperature 36.3 C (97.4 F) 04/01/2024 1:53 PM CRAYON PAINTER Respiratory Rate 16 04/01/2024 1:08 PM CRAYON PAINTER Oxygen Saturation 96% 04/01/2024 1:53 PM CRAYON PAINTER Inhaled Oxygen Concentration - - Weight 67.7 kg (149 lb 4.8 oz) 04/01/2024 1:53 P M CRAYON PAINTER Height 147.3 cm (4' 10) 04/01/2024 1:53 PM CRAYON PAINTER Body Mass Index 31.2 04/01/2024 1:53 PM CRAYON PAINTER Plan of Treatment Upcoming Encounters Date Type Department Care Team (Late st Contact Info) Description 04/23/2024 10:40 AM CDT Office Visit [facility] Medical [facility] Multispecialty Care - [address], [address] [place] [id number] Jayleen Swan MD [address] [place] [address] Roque Guy PA-C 3 [facility] [address] [place] [address] 09/29/2024 9:50 AM CDT Allied Health/Nurse Visit [address] [address] Jayleen Swan MD [address] [place] [address] [place] [phone] 10/06/2024 8:50 AM CDT Office Visit [address] [address] Jayleen Swan MD [address] [place] [phone] 04/07/2025 10:30 AM CRAYON PAINTER Office Visit [address] [address] Jayleen Swan MD [address] [place] [phone] Health Maintenance Due Date Last Done Comments [...] or 60+ Years Completed 02/14/2024 PHQ-2 (Physician [place]) Completed 03/30/2024 Meningococcal B Vaccine Aged Out [...] VENOUS BLOOD VENIPUNCTURE Routine 03/25/2024 7:38 AM CRAYON PAINTER Type 2 diabetes mellitus with diabetic nephropathy, without long-term current use of insulin ([facility]) Acquired hypothyroidism Mixed hyperlipidemia Essential hypertension HEMOGLOBIN, GLYCOSYLATED Routine 03/25/2024 7:38 AM CRAYON PAINTER Type 2 diabetes mellitus with diabetic nephropathy, without long-term current use of insulin ([facility]) COMPREHENSIVE METABOLIC PANEL Routine 03/25/2024 7:38 AM CRAYON PAINTER Essential hypertension LIPID PANEL Routine 03/25/2024 7:38 AM CRAYON PAINTER Mixed hyperlipidemia THYROID STIM HORMONE TSH Routine 03/25/2024 7:38 AM CRAYON PAINTER Acquired hypothyroidism ALBUMIN URINE RANDOM W/CREATININE Routine 03/25/2024 7:38 AM CRAYON PAINTER Type 2 diabetes mellitus with diabetic nephropathy, without long-term current use of insulin ([facility]) DIABETIC RETINOPATHY EXAM (NEGATIVE)(SCAN ORDER) Routine 07/03/2023 COLONOSCOPY GENERIC (SCAN ORDER) Routine 04/01/2021 BONE DENSITY GENERIC (SCAN ORDER) Routine 10/12/2015 from Last 3 Months or Most Recently Relevant to Health Maintenance Results * (ABNORMAL) HEMOGLOBIN, GLYCOSYLATED (03/25/2024 7:38 AM CRAYON PAINTER) Pathologist [facility] HGB A1C 6.0 4.5 - 6.2 % 03/25/2024 3:56 PM CRAYON PAINTER [facility] ESTIMATED AVG GLUCOSE 126(H) 74 - 106 MG/DL 03/25/2024 3:56 PM CRAYON PAINTER [facility] 03/25/2024 7:38 AM CRAYON PAINTER Jayleen Swan MD LABORATORY Final Re sult Performing Organization Address [facility] Co de Phone Number [facility] [address] [place] [address], [place] [phone] * ALBUMIN URINE RANDOM W/CREATININE (03/25/2024 7:38 AM CRAYON PAINTER) [facility] MICROALBUMIN (U) 7.1 <20 MG/L 03/25/19 25 4:01 PM CRAYON PAINTER [facility] CREATININE RANDOM (U) 89.6 MG/DL 03/25/2024 4:01 PM CRAYON PAINTER [facility] ALBUMIN/CREAT RATIO 7.9 <30 MG/G 03/25/2024 4:01 PM CRAYON PAINTER [facility] URINE SPECIMEN / Unknown 03/25/2024 7:38 AM CRAYON PAINTER us Jayleen Swan MD URINE ORDERABLES Final R esult Performing Organization Address [facility]/ZIP Co de Phone Number [facility] [address] [place] [address], [place] [phone] * (ABNORMAL) COMPREHENSIVE METABOLIC PANEL (03/25/2024 7:38 AM CRAYON PAINTER) [facility] SODIUM S/P/B 144 136 - 145 MMOL/L 03/25/2024 3:04 PM [facility] POTASSIUM S/P/B 5.0 3.5 - 5.1 MMOL/L 03/25/2024 3:04 PM [facility] CHLORIDE S/P/B 105 98 - 107 MMOL/L 03/25/2024 3:04 PM [facility] CO2 30.9 21 - 32 MMOL/L 03/25/2024 3:28 PM [facility] GLUCOSE 91 70 - 99 MG/DL 03/25/2024 3:04 PM [facility] BUN 34(H) 7 - 18 MG/DL 03/25/2024 3:04 PM [facility] CREATININE S/P/B 1.47(H) 0.55 - 1.02 MG/DL 03/25/2024 3:04 PM [facility] CALCIUM S/P/B 10.0 8.4 - 10.5 MG/DL 03/25/2024 3:04 PM [facility] BILIRUBIN TOTAL S/P/B 0.5 0.2 - 1.0 MG/DL 03/25/2024 3:04 PM [facility] ALKALINE PHOSPHATASE S/P/B 91 55 - 142 U/L 03/25/2024 3:04 PM [facility] AST 15 15 - 37 U/L 03/25/2024 3:04 PM [facility] ALT 21 14 - 59 U/L 03/25/2024 3:04 PM [facility] TOTAL PROTEIN S/P/B 6.7 6.4 - 8.2 G/DL 03/25/2024 3:04 PM [facility] ALBUMIN S/P/B 3.3(L) 3.4 - 5.0 G/DL 03/25/2024 3:04 PM CRAYON PAINTER [facility] ANION GAP 8.1 5 - 15 MMOL/L 03/25/2024 3:28 PM CRAYON PAINTER [facility] Comment:REFERENCE RANGE NOT ESTABLISHED OSMOLALITY (CALC) 305 MOSM/KG 025 3:04 PM [facility] Comment:REFERENCE RANGE NOT ESTABLISHED GFR ESTIMATE 37(L) >90 ML/MIN/1. 73 M2 03/25/2024 3:04 PM CRAYON PAINTER [facility] GFR NOTES GFR REFERENCE S: 03/25/2024 3:04 PM [facility] Comment: THE ESTIMATED GFR IS CALCULATED USING [...] FAILURE: <15 ml/min/1.73 m2 03/25/2024 7:38 AM CRAYON PAINTER us Jayleen Swan MD LABORATORY Final Re sult [facility] [address] [place] [address], [place] [phone] * LIPID PANEL (03/25/2024 7:38 AM CRAYON PAINTER) CHOLESTEROL 161 <200 MG/DL 03/25/2024 3:04 PM [facility] TRIGLYCERIDES 72 <150 MG/DL 03/25/2024 3:04 PM CRAYON PAINTER [facility] HDL 63 >40 MG/DL 03/25/2024 3:04 PM [facility] LDL-C 84 <100 MG/DL 03/25/2024 3:04 PM CRAYON PAINTER [facility] VLDL CALCULATION 14 5 - 28 MG/DL 03/25/2024 3:04 PM CRAYON PAINTER [facility] CHOL/HDL RATIO 2.6 0.0 - 4.0 03/25/2024 3:04 PM CRAYON PAINTER [facility] LDL/HDL 1.3 0.41 - 2.13 03/25/2024 3:04 PM CRAYON PAINTER [facility] NON HDL CHOLESTEROL 98 <140 MG/DL 03/25/2024 3:04 PM CRAYON PAINTER [facility] 03/25/2024 7:38 AM CRAYON PAINTER Jayleen Swan MD LABORATORY Final Re sult Performing Organization Address City/[facility]/ZIP Co de Phone Number [facility] [address] [place] [address], [place] [phone] * THYROID STIM HORMONE TSH (03/25/2024 7:38 AM CRAYON PAINTER) TSH 1.194 0.358 - 3.740 uIU/ML 03/25/2024 3:04 PM CRAYON PAINTER [facility] 03/25/2024 7:38 AM CRAYON PAINTER Jayleen Swan MD LABORATORY Final Re sult Performing Organization Address [facility]/ZIP Co de Phone Number [facility] [address] [place] [address], [place] [phone] * DIABETIC RETINOPATHY EXAM (NEGATIVE) (07/03/2023) Doc [facility] Scanned SCANNING Final Resu lt Performing Organization Address City/[facility]/ZIP Co de Phone Number [facility] ONBASE * COLONOSCOPY (04/01/2021) us Documents Scanned [...] 2:09 AM 08/01/2020 3:24 PM Care Teams Explosion Welder Relationship Specialty Start Date End Date Jayleen Swan MD [address] [place] [address] PCP - General FAMILY PRACTICE 12/19/23 Martina Lennon [address] [place] [address] [address] 03/09/24
--- OUTSIDE RECORDS SUMMARY | 2024-04-20 13:37 | XMS_ITS | Encounter Summary ---
Author Organization [facility] Address [address] [place] [address] Phone Care Team Providers Care Plate Roller Name Role Phone Yee Gannon APRN, CNP Primary Care P rovider Reason for Visit * Reason Comments Medication Refill Encounter Details Date Type Department Care Team (Late st Contact Info) Description 07/15/2023 Refill [facility] - Primary Care - [place] [address] [place] [address] Yee Gannon APRN, CNP [address] [place] [address] Medication Refill Social History Tobacco Use Types Packs/Day Years Used Date Smoking Tobacco: Never Smokeless Tobacco: Never Alcohol Use Standard Drinks/Week Comments Not Currently 0 (1 standard drink = 0.6 oz pur e alcohol) [facility] Utilities Answer Date Recorded In the past 12 months has [employer] electric, gas, oil, or water company threatened [...] often do you attend chur ch or mormon services? More than 4 times per year 04/08/2023 Do you belong to any clubs o r organizations such as synagogue groups, unions, fraternal or athletic groups, or [...] care, and heating? Not very hard 04/08/2023 [facility] - Occupational [...] place to sleep or slept in a usp (including now)? No 04/08/2023 Education Answer Date Recorded What is the highest level of school you have completed or the highest degree you have received? 12th grade 04/29/2022 Sexually Active Control Partners Comments Not Currently Comments No Sex and Gender Information Value Date Recorded Sex Assigned at Not on file Legal Sex Female 9:02 AM FITNESS SALES ASSOCIATE Gender Identity Female 11/28/2022 6:48 PM CDT Sexual Orientation Straight 11/28/2022 6: 48 PM CDT documented as of this encounter Miscellaneous Notes * Telephone Encounter - Bossman Sesay RN - 07/16/2023 8:20 AM CDT Medication(s) refilled and [facility] Chronic Medication Refill Standing Order for Pediatricand [...] 07/12/23 Office Visit Yee Gannon APRN, RAYSHAWN [facility] 04/09/23 Office Visit Yee Gannon APRN, CNP [facility] 11/28/22 Office Visit Yee Gannon APRN, CNP [facility] 09/27/22 Office Visit Donavon Hoff, ALEC [facility] 09/22/22 Office Visit Donavon Hoff, PAC [facility] 09/18/22 Office Visit Donavon Hoff, PAC [facility] 07/20/22 Office Visit Vivi Morse, [facility] Showing recent visits within past 365 days and meeting all other requirements Future Appointments Date Type Provider Dept 10/08/23 Appointment Lab, [facility] Showing future appointments within next 90 days and meeting all other requirements documented in this encounter Plan of Treatment Not on file documented as of this encounter Visit Diagnoses Not on filedocumented in this encounter Care Teams Plate Roller Relationship Specialty Start Date End Date Yee Gannon APRN, RAYSHAWN [address] [place] [address] PCP - General Advanced Practice Nurse 04/13/2201/28 documented as of this encounter
--- OUTSIDE RECORDS SUMMARY | 2024-04-20 13:37 | XMS_ITS | Encounter Summary ---
Author Organization [facility] Address [address] 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
--- OUTSIDE RECORDS SUMMARY | 2024-04-20 13:37 | XMS_ITS | Encounter Summary ---
Author Organization [facility] Address [address] [place] [address] Phone Care Team Providers Care Manager Test Name Role Phone Yee Gannon NP Primary Care Provide r Angelica Jacinto VIDEO GAME TECHNICIAN Unavailable [phone] Encounter Details Date Type Department Care Team (Late st Contact Info) Description 10/11/2023 Orders Only [facility] Ophthalmology [address] [facility] [address] [place] [address] Dale Parikh MD [address] [facility] [address] [place] [address] Optic neuropathy, right (Primary Dx) Social History Tobacco Use Types Packs/Day Years Used Date Smoking Tobacco: Never Passive Smoke Exposure: Past Smokeless Tobacco: Never Alcohol Use Standard Drinks/Week Comments Defer 0 [...] on file 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 Gender Identity Not on file Sexual Orientation Not on file Occupation Industry Job Start Date Job End Date Retired Not on file Not on file Not on file documented as of this encounter Plan of Treatment Not on file documented as of this encounter Visit Diagnoses Diagnosis Optic neuropathy, right- Primary Other optic neuritis documented in this encounter Care Teams Manager Test Relationship Specialty Start Date End Date Yee Gannon NP [address] [place] [address] PCP - General Emergency Medicine 06/08/22 Angelica Jacinto NP [address] [place] [address] [place] [address] 06/08/22 documented as of this encounter
--- OUTSIDE RECORDS SUMMARY | 2024-04-20 13:37 | XMS_ITS | Encounter Summary ---
Author Organization [facility] Address [address] [facility] 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 F AIR TACTICAL OFFICER documented in this encounter Plan of Treatment Not on file documented as of this encounter Visit Diagnoses Not on filedocumented in this encounter Care Teams Building Construction Inspector Relationship Specialty Start Date End Date Yee Gannon APRN, HOUSE CLEANER SUPERVISOR [address] [place] [address] PCP - General Advanced Practice Nurse 04/13/2201/28 documented as of this encounter
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
--- OUTSIDE RECORDS SUMMARY | 2024-04-20 13:37 | XMS_ITS | Encounter Summary ---
Author Organization [facility] Address [address] [place] [address] Care Team Providers Care Sheet Writer Name Role Phone Angelica Jacinto FOLDER TIER Primary Care Provider Unav ailable Jayleen Swan MD Primary Care Provider + Conchis Parsons MD Unavailable [phone] Kevin Fonseca MD Unavailable Encounter Details Date Type Department Care Team (Late st Contact Info) Description 08/04/2020 Hospital Follow-up Call [facility] [address] [place], [place] [address] Helen Fuentes, RN Social History Tobacco Use Types Packs/Day Years Used Date Smoking Tobacco: Never Smokeless Tobacco: Never Comments:Provider to certified personal finance counselor Alcohol Use Standard Drinks/Week Comments No [...] CDT Gender Identity Female 03/07/2021 3:32 PM GRIDDLE COOK Sexual Orientation Straight 03/07/2021 3: 32 PM GRIDDLE COOK COVID-19 Exposure Response Date Recorded In the [...] Description 04/23/2024 10:40 AM CDT Office Visit [facility] Multispecialty Care - [facility] [address] [facility], [address] [place] [address] Jayleen Swan MD [address] [place] [id number] Roque Guy PA-C [address] [facility] [address] [place] [address] 09/29/2024 9:50 AM CDT Allied Health/Nurse Visit [address] [place] [address] Jayleen Swan MD [address] [facility] [address] [place] [id number] 10/06/2024 8:50 AM CDT Office Visit [address] [address] Jayleen Swan MD [address] [place] [address] 04/07/2025 10:30 AM GRIDDLE COOK Office Visit [address] [address] Jayleen Swan MD [address] [facility] [address] [place] [phone] documented as of this encounter Visit Diagnoses Not on filedocumented in this encounter Additional Health Concerns Infection Onset Date Last Indicated Resolved Time COVID-19 Rule Out 08/10/2020 08/10/2020 01/03/2021 7:05 PM GRIDDLE COOK COVID-19 Rule Out 03/28/2021 03/28/2021 03/28/2021 9:19 AM GRIDDLE COOK COVID-19 Rule Out 03/28/2021 03/28/2021 03/28/2021 8:36 PM GRIDDLE COOK Assessment Noted Time PHQ-9 Depression Total Score: 2 08/03/19 21 4:02 PM CDT documented as of this encounter Care Teams Sheet Writer Relationship Specialty Start Date End Date Angelica Jacinto FNP PCP - General FAMILY PRACTICE 11/21/17 03/01/22 Jayleen Swan MD [address] [place] [address] PCP - General FAMILY PRACTICE 12/19/23 [place] [address] [place] [address] Consulting Physician PULMONARY DISEASE 04/01/24 5 Kevin Fonseca MD [address] [address] Consulting Physician GASTROENTEROLOGY 04/01/24 04/01/[address] [place] [address] 03/09/24 documented as of this encounter
--- OUTSIDE RECORDS SUMMARY | 2024-04-20 13:37 | XMS_ITS | Clinical Summary ---
Author Organization [facility] Address [address] [place] [address] Phone Care Team Providers Care Water Treatment Plant Engineer Name Role Phone Unavailable Primary Care Provider [...] Formulation 05/28/2023 Pneumococcal conjugate PCV20 , polysaccharide [id number] conjugate, adjuvant, PF 05/28/2023 Zoster Vaccine Recombinant 07/06/2023,04/09/2023 Zoster Vaccine, live 12/14/2015 Social History Tobacco Use Types Packs/Day Years Used Date Smoking Tobacco: Never Smokeless Tobacco: Never Tobacco Cessation:Counseling Given: Not Answered Alcohol Use Standard Drinks/Week Comments Not Currently 0 (1 standard drink = 0.6 oz pur e alcohol) [employer] Answer Date Recorded In the past 12 months has [email or web address], gas, oil, or water [employer] threatened to shut off services in your [...] How often do you attend chur or church services? More than 4 times per year [...] care, and heating? Not very hard 04/08/2023 [facility] [place] of Occupat ional Health - Occupational Stress [...] any time in the past 12 m [facility], were you homeless or living in a half-way (including now)? No 08/31/2023 Education Answer Date Recorded What is the highest level of school you have completed or the highest degree you have received? 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 Gender Identity Female 11/28/2022 6:48 PM [...] EYE EXAM 07/03/2023 1 2:00 AM CDT EMI BONE DENSITOMETRY AXIAL SKELETON Routine 06/25/2023 1:23 PM CDT Postmenopausal from Last 3 Months or Most Recently Relevant to Health Maintenance Results * HEMOGLOBIN A1C W/ ESTIMATED GLUCOSE (10/08/2023 8:05 AM CDT) Pathologist [facility] [place] HGB-A1C 5.5 4.0 - 6.0 % 10/08/2023 12:54 PM CDT [facility] Est Average Glucose 111.2 mg/dL 10/08/2023 12:54 PM CDT [facility] Blood Venipuncture / Unknown 10/08/2023 8:05 AM CDT 10/08/2023 8:05 AM CDT Narrative [facility] - 10/08/2023 12:54 PM CDT HEMOGLOBIN A1C: DIABETIC PATIENTS: WELL-CONTROLLED: 6.2 - 7.0 INTERMEDIATE WELL-CONTROLLED: 7.0 - 9.0 POORLY-CONTROLLED: >9.0 Yee Gannon APRN, CNP CHEMISTRY ORDER RAFA Final Result [facility] [address] [place] [address] * HEPATITIS C ANTIBODY (10/08/2023 8:05 AM CDT) Pathologist [facility] [place] hepatitis C antibody 0.06 <1 S/CO 10/08/2023 9:49 PM CDT [facility] Comment: Signal/Cutoff ratio < 0.79 is Nondetected Signal/Cutoff ratio 0.80-0.99 is Grayzone Signal/Cutoff ratio > 0.99 is Detected Supplemental assays are recommended if signal/cutoff ratio is >/=1.00. Signal/cutoff ratio result >/= 5.00 is 97% predictive of positivity for recombinant immunoblot assay (RIBA) and will be reported to the [place] [facility] of Public [facility] as required. Blood Venipuncture / Unknown 10/08/2023 8:05 AM CDT 10/08/2023 8:05 AM CDT Yee Gannon APRN, CNP CHEMISTRY ORDER RAFA Final Result [facility] [address] [place] [address], * (ABNORMAL) CMP (COMPREHENSIVE METABOLIC PANEL) (10/08/2023 8:05 AM CDT) SODIUM 143 136 - 145 mmol/L 10/08/2023 12:54 PM CDT [facility] POTASSIUM 4.0 3.5 - 5.1 mmol/L 10/08/2023 12:54 PM CDT [facility] CHLORIDE 106 98 - 107 mmol/L 10/08/2023 12:54 PM CDT [facility] CO2, VENOUS 29 22 - 30 mmol/L 10/08/2023 12:54 PM CDT [facility] ANION GAP 12.0 <18.0 mmol/L 10/08/2023 12:54 PM CDT [facility] GLUCOSE 90 70 - 99 mg/dL 10/08/2023 12:54 PM CDT [facility] BUN 26(H) 10 - 20 mg/dL 10/08/2023 12:54 PM CDT [facility] CREATININE, BLOOD 1.35(H) 0.60 - 1.00 mg/dL 10/08/2023 12:54 PM CDT [facility] BUN/CREATININE RATIO 19 12 - 20 ratio 10/08/2023 12:54 PM CDT [facility] TOTAL PROTEIN 6.6 6.3 - 8.2 g/dL 10/08/2023 12:54 PM CDT [facility] ALBUMIN 3.9 3.5 - 5.0 g/dL 10/08/2023 12:54 PM CDT [facility] A/G RATIO 1.4 1.0 - 2.2 10/08/2023 12:54 PM CDT [facility] CALCIUM 9.9 8.7 - 10.5 mg/dL 10/08/2023 12:54 PM CDT [facility] T BILI 0.5 0.2 - 1.2 mg/dL 10/08/2023 12:54 PM CDT [facility] SGOT (AST) 17 5 - 34 U/L 10/08/2023 12:54 PM CDT [facility] SGPT (ALT) 15 0 - 55 U/L 10/08/2023 12:54 PM CDT [facility] ALKALINE PHOSPHATASE 67 40 - 150 U/L 10/08/2023 12:54 PM CDT [facility] IS THE PATIENT REQUIRED TO BE FASTING? No 10/08/2023 12:54 PM CDT [facility] GFR, ESTIMATED 41(L) >=60 10/08/2023 12:54 PM CDT [facility] Comment: Creatinine Clearance is the preferred criteria for selecting drug dose adjustments in renally impaired patients. The GFR is provided as additional pertinent clinical information. GFR is reported in mL/min/1.73 sq m. Calculation based on the Chronic Kidney Disease Epidemiology Collaboration (CKD- EPI) equation refit without adjustment for race. GFR, EST. 46(L) >=60 024 12:54 PM CDT [facility] GFR, EST. NONAFRICAN 38(L) >=60 10/08/2023 12:54 PM CDT [facility] Blood Venipuncture / Unknown 10/08/2023 8:05 AM CDT 10/08/2023 8:05 AM CDT us Yee Gannon PET SITTER, BAND PRESSER CHEMISTRY ORDER RAFA Final Result [facility] [address] [place] [address] * EMI DIAG BILATERAL DIGITAL W CAD W SERGIO (08/20/2023 12:00 AM CDT) Anatomical Region Laterality Modality breast Bilateral Mammography 08/20/2023 Yee Gannon APRN, CNP IMG MAMMO ORDER RAFA Final Result * HM DILATED EYE EXAM (07/03/2023 12:00 AM CDT) 07/03/2023 us Provider Scan PROCEDURE/MINOR SURGICAL ORDERAB LES Final Result SCAN * [facility] BONE DENSITOMETRY AXIAL SKELETON (06/25/2023 1:23 PM [...] Narrative 06/25/2023 1:50 PM CDT EXAM DESCRIPTION: [facility] BONE DENSITOMETRY AXIAL SKELETON REASON FOR STUDY: 77 y/o year old F with given history of: Post menopausal status. History of taking vitamin-D, multivitamin and calcium. Fire Protection Designer/Model: [employer] (S/N [id number]) CLINICAL INFORMATION: Current height: 58 inches Maximum [...] by Jenn Abdul M.D. TW: Report ID: [id number] Reading Location: [id number] Procedure Note Jenn Abdul MD - 06/25/2023 EXAM DESCRIPTION: [facility] BONE DENSITOMETRY AXIAL SKELETON REASON FOR STUDY: 77 y/o year old F with given history of: Post menopausal status. History of taking vitamin-D, multivitamin and calcium. Fire Protection Designer/Model: [employer] (S/N [id number]) CLINICAL INFORMATION: Current height: 58 inches Maximum [...] Jenn Abdul M.D. TW: TW Report ID: [id number] Reading Location: [place] [address] IMPRESSION: Normal bone mass REFERENCE: Bone mineral [...] Recently Relevant to Health Maintenance Insurance MEDICARE [facility]
[2024-04-20 13:54] LABS: Basophils Percent Auto 0.4 % (0.2-1.2); Eosinophils Absolute Auto 0.1 K/mm3 (0-0.3); Eosinophils Percent Auto 2.3 % (0-4.4); Hematocrit 40.2 % (37.0-47.0); Hemoglobin 12.4 g/dL (12.0-15.0); Immature Granulocyte Absolute 0.03 K/mm3 (0.00-0.031); Immature Granulocyte Percent A 0.6 % (0-0.5); Lymphocytes Absolute Auto 1.19 K/mm3 (0.9-3.2); Mean Corpuscular HGB Conc 30.8 g/dl (32-36); Mean Corpuscular Volume 93.9 fl (80-100); Mean Platelet Volume 9.9 fl (7.4-10.4); Monocytes Absolute Auto 0.6 K/mm3 (0.1-0.6); Monocytes Percent Auto 10.6 % (2.6-8.5); Neutrophils Absolute Auto 3.3 K/mm3 (1.3-6.7); Neutrophils Percent Auto 63.1 % (45.5-73.1); Platelet Count Result 243 k/mm3 (150-375); Red Blood Count 4.28 M/mm3 (4.2-5.4); Red Cell Distribution Width 12.1 % (11.5-14.5); White Blood Count 5.2 K/mm3 (4.5-10.0)
--- NOTE | 2024-04-20 14:01 | ED_ITS ---
HPI - Abdominal Pain General Chief Complaint: Abdominal Pain Stated Complaint: Lower left abdominal pain x5days Time Seen by Provider: 04/20/24 13:17 History of Present Illness HPI narrative: 78-year-old female with a past medical history including hypertension, YAZAN, CKD. She presents to the emergency room with left-sided lower quadrant abdominal pain for last 3 days. Reports no nausea or vomiting states that she has had normal bowel movement last night. Able to tolerate p.o. intake. Has not tried any medications for symptom control. She reports abdominal cramping. No history of abdominal surgeries. No trauma or injuries. She was otherwise in her normal state of health. Related Data Home Medications ?Medication ?Instructions ?Recorded ?Confirmed ?Last Taken ?Type aspirin 81 mg tablet,delayed 81 mg PO DAILY 04/07/24 04/11/24 Unknown History release atorvastatin 40 mg tablet (Lipitor) 40 mg PO DAILY 04/07/24 04/11/24 Unknown History budesonide-formoterol HFA 160 inhalation 04/07/24 04/11/24 Unknown History mcg-4.5 mcg/actuation aerosol inhaler cholecalciferol (vitamin D3) 125 125 mcg PO DAILY 04/07/24 04/11/24 Unknown History mcg (5,000 unit) capsule citalopram 10 mg tablet 10 mg PO DAILY 04/07/24 04/11/24 Unknown History docusate sodium 50 mg capsule 50 mg PO DAILY 04/07/24 04/11/24 Unknown History (Stool Softener) ferrous sulfate 325 mg (65 mg 325 mg PO DAILY 04/07/24 04/11/24 Unknown History iron) tablet (Feosol) levothyroxine 112 mcg tablet 112 mcg PO DAILY 04/07/24 04/11/24 Unknown History (Synthroid) melatonin 10 mg capsule 10 mg PO QHS 04/07/24 04/11/24 Unknown History montelukast 10 mg tablet 10 mg PO DAILY 04/07/24 04/11/24 Unknown History (Singulair) omeprazole 20 mg capsule,delayed 20 mg PO DAILY 04/07/24 04/11/24 Unknown History release pramipexole 1.5 mg tablet 1.5 mg PO DAILY 04/07/24 04/11/24 Unknown History valsartan 160 mg tablet 160 mg PO DAILY 04/07/24 04/11/24 Unknown History Allergies Allergy/AdvReac Type Severity Reaction Status Date / Time No Known Allergies Allergy Verified 04/20/24 13:13 Review of Systems 2 Review of Systems: As reviewed above in [facility] Social History Social History Smoking status: Never smoker Do You Feel Safe in your Home?: Yes Lack of Transportation: No Lack of Food: Never True Current Housing: I Have Housing Concerned About Future Housing: No Difficulty Paying Gas/Electric Bills: No Difficulty Paying for Meds: No Currently Unemployed: No Education: High School Diploma/GED Living arrangements: with family Occupation/Education: retired Gender identity (if verbalized by the patient): Female Exam 2 Narrative: GENERAL: [Well-appearing, well-nourished, and in no acute distress.] HEAD: [Normocephalic, atraumatic.] EYES: [PERRLA and EOMI.] ENT: Nares clear, no rhinorrhea or epistaxis. Mucous membranes moist. NECK: Supple. CHEST: [Clear to auscultation. No respiratory distress.] HEART: [Regular rate and rhythm]. No murmur heard. [Normal peripheral pulses.] ABDOMEN: [Soft, nondistended], mildly tender to palpation in the left lower quadrant near the umbilicus, [No rigidity or guarding] EXTREMITIES: Normal range of motion. [No edema.] SKIN: Warm, dry, no rash. NEURO: [No focal deficits]. Alert and oriented [x3.] PSYCH: [Normal mood and affect.] Course Vital Signs Vital signs: Vital Signs Temperature 36.5 C 04/20/24 13:22 Pulse Rate 72 04/20/24 13:22 Respiratory Rate 15 04/20/24 13:22 Blood Pressure 155/63 H 04/20/24 13:22 Pulse Oximetry 93 04/20/24 13:22 Oxygen Delivery Room Air 04/20/24 13:22 Temperature 36.5 C 04/20/24 13:22 Pulse Rate 63 04/20/24 16:43 Respiratory Rate 20 04/20/24 16:43 Blood Pressure 163/58 H 04/20/24 16:43 Pulse Oximetry 96 04/20/24 16:43 Oxygen Delivery Room Air 04/20/24 13:22 MDM - Abdominal Pain MDM Narrative Medical decision making narrative: 78-year-old female with history of CKD, hypertension YAZAN. She presents with some left lower quadrant abdominal pain for last 3 days. She describes as a cramping sensation without any sharp for dull quality. Denies any nausea vomiting or diarrhea. Endorses normal bowel movements last night. No abdominal surgical history. Was otherwise feeling in her normal state of health. Normal vital signs aside from some mild elevated blood pressure. No tachycardia, tachypnea, fever or hypoxia. She has a soft nondistended abdomen with some minimal tenderness in left lower quadrant. Differential diagnosis includes gastroenteritis, diverticulitis, diverticulosis, very unlikely to be obstructive process or hernia. CBC, CMP, lipase, urinalysis and a CT scan with contrast was obtained. Patient was offered medications for symptom control but she politely declined. Patient was re-evaluated frequently and remained hemodynamically stable without any pain. Workup shows no leukocytosis or anemia. Electrolytes within normal limits, BUN and creatinine reflective of her normal CKD with no baseline in our EMR. LFTs largely unremarkable, normal alk-phos, AST, bilirubin. Negative lipase. Urinalysis without infection. CT scan shows no acute process aside from some mild esophagitis/gastritis. There is some incidentally found findings including a right lower lobe pulmonary nodule, left kidney nodule, intra and extra hepatic bile duct dilatation without any stone likely secondary to a small adjacent diverticulum in the duodenum. No biliary lab elevations that correlate to this. Right upper quadrant ultrasound was ordered for further delineation which just showed some biliary sludge but no obstructing stone. Aside from the bile duct dilatation is no acute findings on the ultrasound according to radiology. Patient was re-evaluated once again without any pain and still remained symptom free. At this time she is safe and stable for discharge home and was made aware of the incidental findings and need for outpatient follow-up with them on a nonemergent basis. She was given return precautions and felt comfortable with discharge at this time. Medical Records Attestation: I reviewed the patient's medical records. Lab Data Attestation: I reviewed the patient's lab results. 04/20/24 13:46 04/20/24 13:46 Labs: Lab Results 04/20/24 04/20/24 Range/Units 13:46 16:12 WBC 5.2 (4.5-10.0) K/mm3 RBC 4.28 (4.2-5.4) M/mm3 Hgb 12.4 (12.0-15.0) g/dL Hct 40.2 (37.0-47.0) % MCV 93.9 (80-100) fl MCH 29.0 (26-34) pg MCHC 30.8 L (32-36) g/dl RDW 12.1 (11.5-14.5) % Plt Count 243 (150-375) k/mm3 MPV 9.9 (7.4-10.4) fl Immature Gran % (Auto) 0.6 H (0-0.5) % Neut % (Auto) 63.1 (45.5-73.1) % Lymph % (Auto) 23.0 (18.3-44.2) % [place] % (Auto) 10.6 H (2.6-8.5) % Eos % (Auto) 2.3 (0-4.4) % Baso % (Auto) 0.4 (0.2-1.2) % Lymph # (Auto) 1.19 (0.9-3.2) K/mm3 [place] # (Auto) 0.6 (0.1-0.6) K/mm3 Eos # (Auto) 0.1 (0-0.3) K/mm3 Baso # (Auto) 0.0 (0.0-0.1) K/mm3 Abs Immat Gran (auto) 0.03 (0.00-0.031) K/mm3 Absolute Neuts (auto) 3.3 (1.3-6.7) K/mm3 Absolute Nucleated RBC 0.000 (0.0-0.012) K/mm3 Nucleated RBC % 0.0 (0.0-0.2) % Sodium 139 (137-145) mmol/L Potassium 4.6 (3.4-5.0) mmol/L Chloride 103 (98-107) mmol/L Carbon Dioxide 29 (22-30) mmol/L Anion Gap 7 (4-12) mmol/L BUN 34 H (7-17) mg/dL Creatinine 1.64 H (0.7-1.0) mg/dL Estim Creat Clear Calc Not Reportable Estimated GFR 30 L (59 - ) Glucose 102 (65-110) mg/dL Calcium 9.6 (8.4-10.2) mg/dL Total Bilirubin 0.7 (0.2-1.3) mg/dL AST 37 H (14-36) U/L ALT 49 H (6-35) U/L Alkaline Phosphatase 107 (38-126) U/L Total Protein 8.0 (6.3-8.2) g/dL Albumin 4.2 (3.5-5.1) g/dL Lipase 79 (23-300) U/L Urine Color Yellow (Yellow) Urine Appearance Clear (Clear) Urine pH 5.0 (5.0-9.0) Ur Specific [place] 1.032 (1.001-1.035) Urine Protein Negative (Negative) mg/dL Urine Glucose (UA) Negative (Negative) mg/dL Urine Ketones Negative (Negative) mg/dL Ur Blood (Man) Negative (Negative) Urine Nitrate Negative (Negative) Urine Bilirubin Negative (Negative) Urine Urobilinogen 0.2 (<2.0) mg/dL Leukocyte Esterase Rfl Negative (Negative) ANTHONY/UL Imaging Data Attestation: I personally reviewed and interpreted this imaging study as follows: My impression: Impressions Abdomen/Pelvis CT 04/20/24 14:44 IMPRESSION: 11 mm right lower lobe pulmonary nodule. Consider CT at 3 months, PET/CT, or tissue sampling. Mild esophagitis/gastritis. Intra and extrahepatic bile duct dilation, without definite obstructing stone, possibly related to an adjacent, otherwise uncomplicated appearing small duodenal diverticulum. Correlate with biliary labs. 1 cm indeterminate left midpole exophytic lesion. Consider nonemergent, outpatient CT or MR of the kidneys for further characterization. Abdomen Ultrasound 04/20/24 15:50 IMPRESSION: Intra and extrahepatic bile duct dilation, no obstructing stone detected. Biliary sludge. Otherwise normal limited abdominal ultrasound findings. Radiologist's impression: ITS Impressions Abdomen/Pelvis CT 04/20/24 14:44 IMPRESSION: 11 mm right lower lobe pulmonary nodule. Consider CT at 3 months, PET/CT, or tissue sampling. Mild esophagitis/gastritis. Intra and extrahepatic bile duct dilation, without definite obstructing stone, possibly related to an adjacent, otherwise uncomplicated appearing small duodenal diverticulum. Correlate with biliary labs. 1 cm indeterminate left midpole exophytic lesion. Consider nonemergent, outpatient CT or MR of the kidneys for further characterization. Abdomen Ultrasound 04/20/24 15:50 IMPRESSION: Intra and extrahepatic bile duct dilation, no obstructing stone detected. Biliary sludge. Otherwise normal limited abdominal ultrasound findings. Discharge Plan Discharge Clinical Impression: Abdominal cramping, Chronic kidney disease, stage 3b, Essential (primary) hypertension, Biliary sludge determined by ultrasound, Dilated bile duct Patient Disposition: Home, Self-Care Condition: Stable Instructions: Antibiotic Form Additional Instructions: Your CT scan shows no acute urgent or emergent findings or any acute explanation for your abdominal cramping, however there are some incidental findings with your doctor needs to follow up with you about. 11 mm right lower lobe pulmonary nodule which needs a follow-up CT or PET scan in 3 months. 1 cm indeterminate left kidney lesion requiring your kidney doctor to follow up with you about. We will send you home with some medications for symptom control if they are recurring. Return with any new or worsening concerns at any time. Patient Language: Bulgarian Prescriptions: New famotidine [Pepcid] 20 mg tablet 20 mg PO BID Qty: 20 0RF dicyclomine 20 mg tablet 20 mg PO TID PRN (Reason: abdominal pain) Qty: 20 0RF No Action budesonide-formoterol 160-4.5 mcg/actuation HFA aerosol inhaler inhalation valsartan 160 mg tablet 160 mg PO DAILY citalopram 10 mg tablet 10 mg PO DAILY omeprazole 20 mg capsule,delayed release(DR/EC) 20 mg PO DAILY pramipexole 1.5 mg tablet 1.5 mg PO DAILY montelukast [Singulair] 10 mg tablet 10 mg PO DAILY atorvastatin [Lipitor] 40 mg tablet 40 mg PO DAILY levothyroxine [Synthroid] 112 mcg tablet 112 mcg PO DAILY Stool Softener 50 mg capsule 50 mg PO DAILY melatonin 10 mg capsule 10 mg PO QHS cholecalciferol (vitamin D3) 125 mcg (5,000 unit) capsule 125 mcg PO DAILY ferrous sulfate [Feosol] 325 mg (65 mg iron) tablet 325 mg PO DAILY aspirin 81 mg tablet,delayed release (DR/EC) 81 mg PO DAILY Follow-up/Referrals: Beny,Jayleen Barker MD [Primary Care Provider] - Time of Disposition: 16:51
[2024-04-20 14:05] LABS: Alanine Aminotransferase 49 U/L (6-35); Albumin Level 4.2 g/dL (3.5-5.1); Alkaline Phosphatase 107 U/L (38-126); Anion Gap 7 mmol/L (4-12); Aspartate Amino Transferase 37 U/L (14-36); Bilirubin,Total 0.7 mg/dL (0.2-1.3); Blood Urea Nitrogen 34 mg/dL (7-17); Calcium 9.6 mg/dL (8.4-10.2); Carbon Dioxide 29 mmol/L (22-30); Chloride 103 mmol/L (98-107); Estimated Glomerular Filt Rate 30; Glucose 102 mg/dL (65-110); Lipase 79 U/L (23-300); Potassium 4.6 mmol/L (3.4-5.0); Sodium 139 mmol/L (137-145)
[2024-04-20] MEDS: LACTATED RINGERS 1,000 ML 999 ML IV CONT (14:40)
[2024-04-20 15:53] VITALS: BP 146/50; PULSE 66; RESP 22; O2SAT 93
[2024-04-20 16:18] LABS: Add Urine Microscopic? NO; Appearance Urine Clear (Clear); Bilirubin Urine Negative (Negative); Blood Urine Negative (Negative); Color Urine Yellow (Yellow); Glucose Urine UA Negative (Negative); Ketones Urine Negative (Negative); Leukocyte Esterase Ur Negative LEU/UL (Negative); Nitrate Urine Negative (Negative); Protein Urine Negative (Negative); Specific Grav Ur 1.032 (1.001-1.035); Urobilinogen Urine 0.2 mg/dL (<2.0)
[2024-04-20 16:43] VITALS: BP 163/58; PULSE 63; RESP 20; O2SAT 96
[2024-04-20 17:38] VITALS: BP 144/59; PULSE 72; RESP 20; TEMP 36.4; O2SAT 94
== END 2024-04-20 17:42 | disposition home or self-care (01) ==
PROVIDERS: Emergency Provider Student in an Organized Health Care Education/Training Program; PCP Student in an Organized Health Care Education/Training Program
DX: R10.32 Left lower quadrant pain (principal); I12.9 Hypertensive chronic kidney disease with stage 1 through stage 4 chronic kidney disease, or unspecified chronic kidney disease; N18.32 Chronic kidney disease, stage 3b; K83.8 Other specified diseases of biliary tract; K82.8 Other specified diseases of gallbladder; G47.33 Obstructive sleep apnea (adult) (pediatric); R91.1 Solitary pulmonary nodule; K20.90 Esophagitis, unspecified without bleeding; K29.70 Gastritis, unspecified, without bleeding; N28.9 Disorder of kidney and ureter, unspecified
CPT/HCPCS: 36415; 74177; 76705; 80053; 81003; 83690; 85025; 96360; 99284; J7120; Q9967